=== PATIENT | male | born 1965 | race Caucasian/White ===

== ENCOUNTER → 2016-12-13 | Outpatient (CLI) | payer BC ==
[2016-12-13 19:40] LABS: Basophils # (A) 0.1 k/uL (0-0.2); Basophils % (A) 1 %; CHCM 33.7; Eosinophils # (A) 0.1 k/uL (0-0.7); Eosinophils % (A) 1 %; HCT 46.4 % (39.0-53.0); HGB 15.3 gm/dL (13.0-17.5); Luc # (Auto) 0.13; Luc % (Auto) 2; Lymphocytes % (A) 25 %; MCH 29.4 pg (25.0-35.0); MCV 89.2 fL (80.0-100.0); Mean Platelet Volume 9.7; Monocytes # (A) 0.5 k/uL (0-1.0); Monocytes % (A) 7 %; Neutrophils # (A) 5.2 k/uL (1.3-7.7); Neutrophils % (A) 65 %; RBC 5.21 m/uL (4.30-5.90); RDW 14.9 % (11.5-15.5); WBC (Perox) 7.74
[2016-12-13 20:12] LABS: ALT 48 U/L (21-72); AST 23 U/L (17-59); Alkaline Phosphatase 82 U/L (38-126); Anion Gap 12 mmol/L; Blood Urea Nitrogen 20 mg/dL (9-20); Calcium 9.6 mg/dL (8.4-10.2); Carbon Dioxide 26 mmol/L (22-30); Chloride 104 mmol/L (98-107); Cholesterol 121 mg/dL (<200); Glucose 146 mg/dL (74-99); HDL Cholesterol 36 mg/dL (40-60); Non-African American GFR(MDRD) >60 (>60 ml/min/1.73 sqM); Potassium 3.9 mmol/L (3.5-5.1); Sodium 142 mmol/L (137-145); Total Bilirubin 0.6 mg/dL (0.2-1.3); Total Protein 6.6 g/dL (6.3-8.2)
[2016-12-13 20:57] LABS: Vitamin B12 293 pg/mL (239-931)
[2016-12-13 23:21] LABS: Hemoglobin A1C 7.7 % (4.2-6.1)
== END | disposition home or self-care (01) ==
LOC: MMGSC 10:11
PROVIDERS: ATTEND Family Medicine
DX: E11.9 Type 2 diabetes mellitus without complications (principal); E78.5 Hyperlipidemia, unspecified; R53.83 Other fatigue; I10 Essential (primary) hypertension; Z12.5 Encounter for screening for malignant neoplasm of prostate
CPT/HCPCS: 84439; 80061; 80053; 82607; 83036; 84443; 85025; 82306; 36415; G0103

== ENCOUNTER → 2017-03-24 | Outpatient (CLI) | payer BC ==
[2017-03-24 21:14] LABS: ALT 51 U/L (21-72); AST 25 U/L (17-59); Alkaline Phosphatase 99 U/L (38-126); Anion Gap 11 mmol/L; Blood Urea Nitrogen 18 mg/dL (9-20); Calcium 9.8 mg/dL (8.4-10.2); Carbon Dioxide 25 mmol/L (22-30); Chloride 102 mmol/L (98-107); Creatine Kinase 130 U/L (55-170); Glucose 206 mg/dL (74-99); Non-African American GFR(MDRD) >60 (>60 ml/min/1.73 sqM); Sodium 138 mmol/L (137-145); Total Bilirubin 0.7 mg/dL (0.2-1.3)
[2017-03-24 21:18] LABS: Rheumatoid Factor, Qnt <9 IU/mL (<12)
[2017-03-24 21:29] LABS: Potassium 4.5 mmol/L (3.5-5.1)
[2017-03-25 02:14] LABS: ANA w/Reflex to Titer NEGATIVE (NEGATIVE)
== END | disposition home or self-care (01) ==
LOC: MMGSC 10:30
PROVIDERS: ATTEND Family Medicine
DX: E11.9 Type 2 diabetes mellitus without complications (principal); E55.9 Vitamin D deficiency, unspecified; M25.50 Pain in unspecified joint
CPT/HCPCS: 36415; 80053; 82306; 82550; 83036; 86038; 86431

== ENCOUNTER → 2020-08-12 | Outpatient (CLI) | payer BC ==
[2020-08-14 11:48] LABS: HLA B27 POSITIVE
== END | disposition home or self-care (01) ==
LOC: LABWHC1 12:20
PROVIDERS: ATTEND Family Medicine
DX: M54.12 Radiculopathy, cervical region (principal)
CPT/HCPCS: 36415; 86812

== ENCOUNTER → 2020-09-09 | Outpatient (CLI) | payer BC ==
--- NOTE | 2020-09-10 07:27 | CT ---
EXAMINATION TYPE: CT CervThoracic spine wo con DATE OF EXAM: 09/09/2020 COMPARISON: Outside cervical August 24, 2020 spine x-ray HISTORY: Cervical/thoracic spine pain. Pt c/o pain in RT shoulder radiating into hands. CT DLP: 8.20 mGycm. Automated Exposure Control for Dose Reduction was Utilized. TECHNIQUE: CT scan of the cervical and thoracic spine are obtained without contrast, axial images ar e obtained, sagittal and coronal reformatted images are also reviewed. FINDINGS: There is dextroconvex scoliotic curvature centered in the upper thoracic spine. Alignment i s satisfactory on the sagittal images. The C1-C2 articulation is satisfactory on the coronal images. Vertebral body heights are maintained. Disc space heights are fairly well-preserved. There are large anterior osteophytes in the cervical spine with suspected old fracture at C4-C5 level. There is more mild to moderate anterior and lateral multilevel spurring in the thoracic spine. Dense ossification o f the posterior ligament from C2-C3 disc space level to inferior C4 level effaces the anterior thecal sac measurement 71. There is additional spur disc complex effacing anterior thecal sac at C5-C6 leve l on sagittal and axial image 61. There is large left paracentral spur or spur disc disc complex effa cing the anterior thecal sac at T8-T9 level sagittal image 69 and axial image 163. Thyroid gland shows subcentimeter low dense nodules bilaterally. There is incidental 3 mm calcified s uperior right lower lobe nodule or granuloma axial image 144. Coronary artery calcification in the LA D distribution is present. Cholecystectomy clips. IMPRESSION: Multilevel degenerative changes as detailed above. Prominent spurring and/or bridging ost eophytes in the cervical spine noted.
== END | disposition home or self-care (01) ==
LOC: RADCTMAIN 14:44
PROVIDERS: ATTEND Orthopaedic Surgery
DX: M50.31 Other cervical disc degeneration, high cervical region (principal); M41.84 Other forms of scoliosis, thoracic region; M46.04 Spinal enthesopathy, thoracic region
CPT/HCPCS: 72125; 72128

== ENCOUNTER → 2020-09-11 | Outpatient (CLI) | payer BC ==
--- NOTE | 2020-09-12 03:17 | MR ---
EXAMINATION TYPE: MR sacroiliac joints wo con DATE OF EXAM: 09/11/2020 COMPARISON: None HISTORY: Pain in sacroiliac joints, possible anklyosing spondylitis of multiple sites in spine. Multiplanar multiecho imaging of the sacroiliac joints was performed without contrast. The sacroiliac joint spaces are fairly normal. I see no focal bone destruction. There is no pathologi c fluid collection. The sacrum appears intact. There is no pathologic widening of the sacroiliac join t spaces. There is no increased fluid signal and also no edema in the bone adjacent to the sacroiliac joints on the STIR images. IMPRESSION: MR scan of the sacroiliac joints is within normal limits. No evidence of sacroiliitis.
== END | disposition home or self-care (01) ==
LOC: RADMRIMAIN 16:57
PROVIDERS: ATTEND Internal Medicine Rheumatology
DX: M53.3 Sacrococcygeal disorders, not elsewhere classified (principal)
CPT/HCPCS: 72195

== ENCOUNTER → 2020-10-27 | Outpatient (CLI) | payer BC ==
--- NOTE | 2020-10-27 11:03 | NM ---
EXAMINATION TYPE: NM stress cardiolite complete DATE OF EXAM: 10/27/2020 COMPARISON: NONE HISTORY: Precordial chest pain and abnormal EKG TECHNIQUE: After the intravenous administration of 9.82 mCi Tc 99m Sestamibi - Rest images obtained 45 minutes post injection. The patient exercised using a JOHN protocol and 1 minute prior to peak exercise was injected with 25.2 mCi Tc 99m Sestamibi - Stress images obtained 15 minutes post injecti on. FINDINGS: Targeted heart rate was achieved during performance of the study. Review of stress and rest SPECT tara ges demonstrates no distinct perfusion abnormality. Gated analysis shows normal wall motion with an estimated left ventricular ejection fraction of 57 %. IMPRESSION: No scintigraphic evidence for reversible ischemia
--- NOTE | 2020-10-27 12:20 | P.STRESS ---
- Stress Test Note Stress Test Results/Findings: Exam Performed: NM stress cardiolite complete Exam Date: 10/27/20 Reason for Exam: JACKIE Height: 5 ft 11 in Weight: 103 kg Protocol: STRESS CARDIOLITE Stage: 3 Duration of Exercise: 7:45 Resting Heart Rate: 82 Resting Blood Pressure: 158/95 Maximum Achieved Heart Rate: 148 Maximum Achieved Blood Pressure: 221/76 85% PMHR: 140 100% PMHR: 165 METS: 9.3 Technologist Comment: Stress Test Results/Findings: Patient underwent Cardiolite stress test with a [place] protocol treadmill stress test. Patient exercised into Stage 3 for a total of 7 minutes and 45 seconds reaching a total of 9.3 METS. Patient's maximum heart rate was 148 which represented 90 % age-predicted maximum heart rate. Stress EKG findings: At baseline patient's EKG showed normal sinus rhythm, normal axis, poor R-wave progression, no significant ST or T-wave abnormalities. At peak exercise, EKG showed occasional PVC, nondiagnostic [address] depressions in the inferolateral leads. Conclusions: 1. Borderline EKG response to exercise with nonspecific EKG changes not diagnostic of ischemia. 2. Fair exercise capacity. 3. Nuclear portion to be reported separately.
--- NOTE | 2020-10-29 12:39 | EST ---
Stress Test Results/Findings: Exam Performed: HI stress cardiolite complete Exam Date: 10/27/20 Reason for Exam: JACKIE Height: 5 ft 11 in Weight: 103 kg Protocol: STRESS CARDIOLITE Stage: 3 Duration of Exercise: 7:45 Resting Heart Rate: 82 Resting Blood Pressure: 158/95 Maximum Achieved Heart Rate: 148 Maximum Achieved Blood Pressure: 221/76 85% PMHR: 140 100% PMHR: 165 METS: 9.3 Technologist Comment: Stress Test Results/Findings: Patient underwent Cardiolite stress test with a [place] protocol treadmill stress test. Patient exercised into Stage 3 for a total of 7 minutes and 45 seconds reaching a total of 9.3 METS. Patient's maximum heart rate was 148 which represented 90 % age-predicted maximum heart rate. Stress EKG findings: At baseline patient's EKG showed normal sinus rhythm, normal axis, poor R-wave progression, no significant ST or T-wave abnormalities. At peak exercise, EKG showed occasional PVC, nondiagnostic [address] depressions in the inferolateral leads. Conclusions: 1. Borderline EKG response to exercise with nonspecific EKG changes not diagnostic of ischemia. 2. Fair exercise capacity. 3. Nuclear portion to be reported separately. MTDD
== END | disposition home or self-care (01) ==
LOC: RADNMMAIN 08:15
PROVIDERS: ATTEND Family Medicine
DX: R94.31 Abnormal electrocardiogram [ECG] [EKG] (principal); R07.2 Precordial pain
CPT/HCPCS: 93017; 78452; A9500

== ENCOUNTER → 2020-10-29 | Outpatient (CLI) | payer BC ==
--- NOTE | 2020-10-29 09:55 | FL ---
EXAMINATION TYPE: FL barium swallow DATE OF EXAM: 10/29/2020 CLINICAL HISTORY: Dysphagia TECHNIQUE: A double contrast esophagram is performed utilizing air and barium. A total of 1 minute and 28 seconds of fluoroscopic time was utilized during procedure and 78 images obtained. COMPARISON: None FINDINGS: The esophagus shows normal motility and slight delayed emptying into the stomach. No evide nce of hiatal hernia or stricture noted. There was a small amount of gastroesophageal reflux was seen during real time performance of this study. There is a persistent defect of the cervical esophagus. IMPRESSION: 1. Persistent filling defect of the cervical esophagus is indeterminant on this examination. Upper en doscopy would be helpful for further evaluation. 2. Small amount of gastroesophageal reflux is noted. 3. Slight delayed emptying of contrast into the stomach.
== END | disposition home or self-care (01) ==
LOC: RADUSWWP 09:08
PROVIDERS: ATTEND Otolaryngology
DX: K21.9 Gastro-esophageal reflux disease without esophagitis (principal)
CPT/HCPCS: 74220

== ENCOUNTER → 2020-11-20 | Outpatient (CLI) | payer BC | END | disposition home or self-care (01) | LOC: LABPAT 08:14 | PROVIDERS: ATTEND Orthopaedic Surgery | DX: Z01.812 Encounter for preprocedural laboratory examination (principal); M48.32 Traumatic spondylopathy, cervical region | CPT/HCPCS: 87070 ==

== ENCOUNTER 2020-12-01 05:58 | Observation (INO) | payer BC ==
[2020-11-27 15:13] VITALS: BMI 30.2
--- NOTE | 2020-11-30 10:43 | P.HPOR ---
History of Present Illness H&P Date: 11/13/20 Chief Complaint: Neck pain, Arm tingling Subjective: This 55 year old male presents today for a a follow up for discussion of surgical intervention. 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 He did follow up with Dr. Nguyen regarding this, who agrees that he needs surgery and decompression. The patient has been wearing his cervical collar at night and when driving. He notes some improvement in his neck pain. Patient is not taking any medication for pain. Patient is ambulating independently. He states he saw ENT, who did a swallow eval. I have reviwed these films as well. He does have some filling and clearning difficulty around the C6-7 region which is where this osteophyte is large and protruding. We discussed treatment of this, however at a later time. He is still able to swallow and is doing OK with this. There are no other symptoms related to this at this time. Voice is normal. The patients' past social, medical, family, surgical history, as well as review of systems, have been reviewed. Please refer to the Neurosurgery History and Physical form that has been scanned in to our electronic medical record system. 10/07/20:Subjective: This 55 year old male presents today with his for a a follow up on his cervical pain and CT results and disccusion of surgical intervention. We discussed last visit about his OALL and OPLL and the consequences, sequela and o utomces from this. He states today that he is noting more difficulty with swallowing than in the past and had never really put it together that the large osteophyes on his neck could be causing this. He currently has no pain and is doing better in regards to his neck pain but still has a lot of issues with his hands, his notes that he drops things a lot and that is it hard for him to perform fine motor skills. The patient has been wearing his cervical collar at night and when driving. He notes some improvement in his neck pain. Patient is not taking any medication for pain. Patient is ambulating independently. 01/11/21:This 55 year old male presents with neck pain. Patient denies any specific injury. He states that he has had neck pain for 8 weeks. He reports right arm and shoulder pain that radiates down into his right hand. Patient notes numbness in his right index and middle fingers. Patient states that he has no pain today. Patient currently is not taking any medication for pain. He did take Gabapentin and Ibuprofen for 6 weeks with no relief. he was recently tested for HLA-B27 which was positive and he was sent to rheumatology for evalua tion however he is not followed with yet he has appointment coming up. He was seen by Dr. Deleon who sent him here. He denies any fevers chills shortness of breath or chest pain at this time he states that his arm symptoms have improved Review of Systems 14 points review of systems completed and as stated in HPI, all other systems reviewed are negative. Past Medical History Past Medical History: Diabetes Mellitus, Hyperlipidemia, Hypertension, Osteoarthritis (OA) Additional Past Medical History / Comment(s): peripheral neuropathy, difficulty swallowing when laying flat, thinks is from cervical issue he has History of Any Multi-Drug Resistant Organisms: None Reported Past Surgical History: Cholecystectomy Additional Past Surgical History / Comment(s): dental surg. Past Anesthesia/Blood Transfusion Reactions: Postoperative Nausea & Vomiting (PONV) Smoking Status: Former smoker - Past Family History Mother Family Medical History: Cancer Additional Family Medical History / Comment(s): colon Medications and Allergies Home Medications Medication Instructions Recorded Confirmed Type Liraglutide [Victoza 3-Brandon] 1.8 mg SQ DAILY 11/27/20 11/27/20 History Losartan Potassium [Cozaar] 50 mg PO BID 11/27/20 11/27/20 History Pravastatin Sodium [Pravachol] 40 mg PO HS 11/27/20 11/27/20 History glyBURIDE/METFORMIN HCL 2 tab PO BID 11/27/20 11/27/20 History [Glucovance 5-500 mg] sitaGLIPtin [Januvia] 100 mg PO DAILY 11/27/20 11/27/20 History Allergies Allergy/AdvReac Type Severity Reaction Status Date / Time codeine Allergy Nausea & Verified 11/27/20 15:08 Vomiting MARILYN Inhibitors AdvReac Cough Verified 11/27/20 15:08 adhesive tape AdvReac skin Verified 11/27/20 15:08 blisters amlodipine [From Norvasc] AdvReac lower Verified 11/27/20 15:08 extremity edema atorvastatin [From Lipitor] AdvReac joint pain Verified 11/27/20 15:08 Physical Examination Osteopathic Statement: *. No significant issues noted on an osteopathic structural exam other than those noted in the History and Physical/Consult. PHYSICAL EXAMINATION: General: Awake, alert, appropriate for age, in no acute distress. HEENT: No unusual neck masses around region of lateral neck triangle, thyroid, supraclavicular groove Heart: Regular rate and rhythm, normal S1, S2 and no murmur/gallop. Lungs: Clear to auscultation bilaterally with no use of accessory muscles. Extremities: Skin warm and dry without acute lesions, coloration, temperature, skin intact, no tenderness or erythema Palpation: Please see Pain drawing on Intake sheet for further detail. Midline spinal tenderness: No E6 Paralumbar tenderness: No E6 Parathoracic tenderness: No E6 Buttocks tenderness: No E6 Special findings: none POSTURAL and MUSCULO-SKELETAL EVALUATION: Coronal Balance: Neutral Recumbent testing: Patient is able to lay flat on back Sagittal Balance: Neutral Shoulder Profile: level Pelvic Girdle: level Neck ROM: Unrestricted Lumbar ROM: Unrestricted Shoulder ROM: Symmetric in abduction, ER/IR Hip ROM: Symmetric in abduction, adduction, ER/IR Knee ROM: Symmetric and intact in Flexion / extension Hands: Normal Feet:Normal VASCULAR STATUS : LEFT RIGHT Wrist Pulses intact intact Pedal Pulses (Dors. pedis & post.tibialis) intact intact Color normal normal Edema Absent Absent NEUROLOGIC EXAMINATION: Mental Status: Awake and alert, fully oriented, with normal attention, concentration and memory, and fluent, appropriate speech. Cranial Nerves: I: Olfactory not tested. II: Visual acuity normal, no visual field deficit noted with confrontation. III,IV: Normal pupillary reflexes & intact extraocular movements without nystagmus. V,: Intact symmetrical facial sensation. VII: Intact symmetrical facial motor movement VIII: Hearing intact. IX,X: Intact gag, swallow, & normal voice. XI: Sternocleidomastoid, trapezius function intact. XII: Tongue midline with normal movements. L'hermitte's Sign: Negative / absent Spurling'Sign: Absent bilaterally. Cubital percussion test: Absent bilaterally. Elizabeth-Tinel sign - Carpal region: Absent bilaterally. Straight Leg Raising: Absent bilaterally. Crossed straight leg raise: negative MOTOR EXAM (0-5/5, N/T) STRENGTH RIGHT LEFT Shoulder Abd (not part of the RADHA score) 5 5 Elbow Flexors 5 4+ Elbow Extensor 5 5 Wrist Dorsiflexors 5 4+ Finger Abductor 5 5 Junk Dealer 5 5 Hip Flexor (Not part of RADHA Motor score) 5 5 Knee Flexor 5 5 Knee Extensor 5 5 Ankle dorsiflexor 5 5 Ankle plantarflexion 5 5 Extensor hallucis 5 5 REFLEXES(0-4/2, NT) RIGHT LEFT Upper Extremities 2 2 Lower Extremities 2 2 Pathological Reflexes RIGHT LEFT Tse's Absent Absent Clonus Absent Absent # Indicates mechanical impairment negative Babinskis bilaterally Muscle appearance: Normal Rectal Tone: Deferred Sensory system (0-4, N/T) Test type RU MANISH RL LL Joint-Position 2 2 2 2 Vibration 2 2 2 2 Pain & LT sense 2 2 2 2 Dermatomal Deficit: none none none none Gait and Functional Evaluation: Ambulatory aids: Independent Romberg's test: Intact bilaterally Toe heel walk / heel-toe walk intact while maintaining satisfactory balance? yes Squatting/straightening w/o assistance to a min of 60 degree knee flexion? yes Single leg stance: intact Trendelenburg sign negative bilaterally Hand and finger dexterity intact bilaterally? yes Disdiadochokinesis examination negative bilaterally? yes Results XRAY: of the cervical spine today reveal: occipital cervical and C1 2 joints appear stable to flexion-extension. There is anterior flowing osteophytes of the cervical spine as well as ossification of the posterior longitudinal ligament. Anterior longitudinal ligament ossification von to DISH. There is interruption of this at the level of C4-C5 which appears chronic in nature. The OPLL appears to extend from C2-C3 down through C4-C5. No other fracture or dislocation is noted overall alignment is fairly well maintained disc spaces are spared. XRAY of the lumbar spine today reveal: beginning stages of DISH with L4-L5 anterior osteophytes as well as L1-2 anterior osteophytes overall alignment well maintained mild spondylosis throughout as well as facet arthrosis no fracture or dislocation noted. AP pelvis demonstrates congruent femoral acetabular joints with diffuse heterotopic bone formation as well as subchondral sclerosis osteophytic exuberance over the lateral aspect of the acetabulum as well as on on bone arthritic changes subchondral sclerosis and cyst formation XRAY: of the cervical spine from 08/24/2020 was reviewed today reveal: occipital cervical and C1 2 joints appear stable to flexion-extension. There is anterior flowing osteophytes of the cervical spine as well as ossification of the posterior longitudinal ligament. Anterior longitudinal ligament ossification von to DISH. There is interruption of this at the level of C4-C5 which appears chronic in nature. The OPLL appears to extend from C2-C3 down through C4-C5. No other fracture or dislocation is noted overall alignment is fairly well maintained disc spaces are spared. XRAY of the lumbar spine from 08/24/2020 was reviewed today reveal: beginning stages of DISH with L4-L5 anterior osteophytes as well as L1-2 anterior osteophytes overall alignment well maintained mild spondylosis throughout as well as facet arthrosis no fracture or dislocation noted. AP pelvis demonstrates congruent femoral acetabular joints with diffuse heterotopic bone formation as well as subchondral sclerosis osteophytic exuberance over the lateral aspect of the acetabulum as well as on on bone arthritic changes subchondral sclerosis and cyst formation CT of the cervical and thoracic spine from 09/09/2020 reveal: this does reveal ossification the anterior longitudinal ligament from C2 to C7. The patient does have ossification of the posterior longitudinal ligament as well from C2 to C4 there is beginning stages of OPLL at C4 5 and 56 with ligamental thickening. The patient has critical stenosis at these levels measuring approximately 7 mm. From C3 to C7 T1 the patient has 7-8 mm of space available for the cord which is classified as critical stenosis being less than 10 mm. There is a potential fracture line through the C5-C6 region of the anterior longitudinal ligament ossification which is healing in this area. The patient also states that his neck pain is better. Assessment and Plan Assessment: It was my pleasure to have seen and examined Justyn Carter. I reviewed the patient's clinical syndrome, physical findings, and imaging studies during the appointment today. It is my impression that the patient has a diagnosis of the following. I outlined the natural course history without intervention and various interventional options. 1. diffuse idiopathic spinal hyperostosis 2. cervical OPLL, OALL 3. HLA-B27 positive spondyloarthropathy 4. Right upper extremity weakness, left upper extremity weakness 5. 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 C2-T2 or 3 decompression and fusion due to OPLL and OALL with severe stenosis and continued progressive cervical meylopathy 2. Patient will follow up post procedure Surgical Procedure Risk Review Justyn Carter is a 55 year old male presenting for evaluation of onset of UE weakness, neck pain, difficulty with swallowing, arm pain and weakness, unsteady gait and difficulty with fine motor skills. It was my pleasure to have seen and examined Mr. Carter. In our visit today we have had a chance to go over subjective complaints, physical examination findings and treatments, including the natural course history without intervention and various interventional options. The imaging demonstrates OALL and OPLL with severe stenosis, DISH syndrome, stable C0 and C1-2 joints . 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 I explained to the patient that as his condition progresses it could cause continued syptoms, worsesning weakness, instability and pain, worsening meylopathy . At this time, based on the patients imaging and physical exam, I recommend surgery in the form or a: C2-T2 or 3 decompression and fusion. We discussion fusion vs non fusion and I do beliveve that with his extensive OPLL he would need a wide decompression that would destabilize his spine. We discussed that while he has a fused segment, his cervicothoracic junction is not fully fused and he has a region at C6-7 that anteriorly is not completely fused. We discussed that withou a fusion he runs the risk of fracture, post laminectomy kyphosis and severe cervicothoracic deformity. He discussed this with another surgeon as well. He has done his own research and has requested that we fuse as well as decompress, and I agree with this decision. I discussed the risk and benefits of this procedure at length with Mr. Carter. The patient agreed to consider pursuing the procedure mentioned above. Plan: 1. Cervical 2 to Thoracic 2 or 3 decompression and fusion 2. Follow up with PCP for surgical clearance 3. Review of surgical risks and benefits as well as an educational packet on the proposed surgical procedure. Risks: All surgical procedures come with inherent risks, including those related to positioning, anesthesia, intraoperative findings, and postoperative complications. It is important to understand that surgery does not come with any guarantee of a successful outcome as complications and adverse events are al ways possible. The patient was given a handout in office today discussing the surgical procedure and risks associated with the intervention, both of which were discussed with the patient. These risks include but are not limited to the following: ? Experiencing same, different or even worse symptoms in back, neck, arms, or legs compared to before surgery. ? Requiring further surgery or other forms of treatment presently or at some time in the future at same or other levels of the intended spine surgery. ? On an extreme but fortunately relatively rare basis severe complication such as blindness, stroke, heart attack, temporary and/or permanent nerve injury, paralysis, coma, or may occur, sometimes without known explanation. ? Surgical complications may include but are not limited to risk of infection, fluid accumulation in the surgical dissection site, including a seroma or hematoma, that requires additional surgery, wound drainage, bleeding, new numbness or weakness, vision changes/loss, spinal fluid leakage, non-healing and/or infected incision, headaches, difficulty or inability to swallow, hoarseness, hemopneumothorax, pneumothorax, impotence, retrograde ejaculation, vaginal dryness; injury to nerves, spinal cord, blood vessels, lymphatics or other vital organs (i.e., bowel injury, injury to the great vessels); heterotopic bone formation; complications related to the hardware such as screws, rods, cages including misplaced hardware, device failure, instrumentation at the wrong spine level, hardware fracture/breakage, or hardware loosening; vertebral failure of the spinal column above or below the newly placed hardware; retained surgical instrumentations or devices and the need for further surgery. ? Medical risks of the planned spine surgery include but are not limited to generalized Infections to the whole body or local areas outside of the surgical site (sepsis), heart attack, bleeding, anaphylaxis, meningitis, seizure, epilepsy, hearing loss, burn kaufman, laceration of the head or other areas of the body, bruising, hypersensitivity of the skin, bladder over distension; allergic reaction; shoulder injury related to positioning; fat, blood and air clots to other areas of the body like heart, lungs, brain; failure of internal organs such as lungs, kidneys, liver and excessive bleeding. If blood transfusions are necessary, note that transfusions may cause intolerance reactions such as anaphylaxis or other complex reactions. Despite best efforts, the results of spine surgery might not heal in terms of b one, soft tissues such as skin, fascia, ligaments, and joints. Additionally, in order to achieve best possible results, spine surgery may be carried out beyond the initially planned levels and involve decompression, fusion including insertion of hardware at levels other than the original intended area of surgical interest change some portions of the procedure in order to ensure the best possible outcomes. With spine surgery and spinal fusion, there are different off label uses of instrumentation (devices, implants and hardware) as well as biological substances (bone morphogenic proteins, demineralized bone matrix) as well as using extra bone from allograft sources (i.e. cadaver bone) or autograft (iliac crest bone, ribs, or the spine itself). The patient has been given information about these practices and their inherent risks and benefits. [facility] Physician Assistants are medically trained surgical providers who function in the outpatient, inpatient, and operating room setting under the direct supervision of the attending surgeon.They assist in the operating room with direct supervision of the attending surgeons. The patient has had a chance to review all the listed information, has been given print outs detailing this information, and has had all his/her questions answered to their satisfaction. It was my pleasure to have seen and examined Mr. Carter. In our visit today we have had a chance to go over my understanding of our patient's current condition, the natural course history without intervention and various interventional options. Questions were invited and answered, and the patient wishes to proceed as outlined above. I have seen and examined the patient for 25 minutes and we have spent more than 50% of the time in repeat and detailed counseling about the patient's condition, its natural course history with out and as much as can be predicted with surgery and re-review of various surgical treatment options. In conclusion,Mr. Carter and his spouse/partner requested we proceed with the above suggested surgery and are willing to accept risks and limitations of the suggested surgery as nature of the disease process and our best attempts at treatment for the condition. Thank you again for allowing us to be part of your patient's care. Please don't hesitate to contact me if you have any further questions. Signed and authenticated by: Chaitanya Londono [facility] [address] [address] This message is confidential, intended only for the named recipient(s) and may contain information that is privileged or exempt from disclosure under applicable law. If you are not the intended recipient(s), you are notified that the dissemination, distribution or copying of this information is strictly prohibited. If you received this message in error, please notify the sender then delete this message. Patient verbalizes understanding of the information discussed.
[~2020-12-01 05:58] MED LIST: ACETAMINOPHEN TAB 500 MG TAB PO PRN; DEXAMETHASONE SOD PHOSPHATE 4 MG/ML 1 ML VIAL IV ONE; GABAPENTIN 300 MG CAP PO PRN; ONDANSETRON 4 MG/2 ML VIAL IVP PRN; TRANEXAMIC ACID 1,000 MG in SODIUM CHLORIDE 0.9% 100 ML IVPB PRN
[2020-12-01] MEDS ORDERED: VANCOMYCIN 1,500 MG in SODIUM CHLORIDE 0.9% 250 ML IVPB PRN (06:00)
[2020-12-01] MEDS ORDERED: HYDROmorphone 0.5 MG/0.5 ML SYRINGE IVP PRN ×2 (07:00→13:11)
[2020-12-01] MEDS ORDERED: SCOPOLAMINE 1.5MG/72HR PATCH TRANSDERM ONE (07:05)
[2020-12-01 07:14] LABS: Glucose,Whole Blood 147 mg/dL (75-99)
[2020-12-01] MEDS ORDERED: LACTATED RINGERS 1,000 ML IV ONE ×6 (07:15→13:52)
[2020-12-01] MEDS ORDERED: MIDAZOLAM 2 MG/2 ML VIAL IVP ONE (07:17)
[2020-12-01] MEDS ORDERED: fentaNYL (PF) 50 MCG/ML 2 ML AMP IVP ONE (07:24)
[2020-12-01] MEDS ORDERED: KETAMINE 10 MG/ML 20 ML VIAL ONE (07:45)
[2020-12-01] MEDS ORDERED: TRANEXAMIC ACID 1,000 MG/10 ML VIAL ONE (07:45)
[2020-12-01] MEDS ORDERED: ONDANSETRON 4 MG/2 ML VIAL ONE (07:45)
[2020-12-01] MEDS ORDERED: PHENYLEPHRINE-0.9% NACL SYG 1,000 MCG/10 ML SYRINGE ONE (07:45)
[2020-12-01] MEDS ORDERED: PROPOFOL 10 MG/ML 20 ML VIAL IV ONE (07:45)
[2020-12-01] MEDS ORDERED: INSULIN REGULAR 100 UNIT/ML VIAL (IV) IV ONE (07:45)
[2020-12-01] MEDS ORDERED: ROCURONIUM 10 MG/ML (5 ML VIAL) IV ONE (07:45)
[2020-12-01] MEDS ORDERED: fentaNYL (PF) 50 MCG/ML 2 ML AMP ONE (07:45)
[2020-12-01] MEDS ORDERED: SUCCINYLCHOLINE CHLORIDE 100 MG/5 ML SYR IV ONE (07:45)
[2020-12-01] MEDS ORDERED: ALBUMIN HUMAN 5% (25gm) 500 ML VIAL IVPB ONE (07:45)
[2020-12-01] MEDS ORDERED: SODIUM CHLORIDE 0.9% 100 ML BAG ONE (07:45)
[2020-12-01] MEDS ORDERED: HYDROmorphone (PF) 1 MG/ML ONE (07:45)
[2020-12-01] MEDS ORDERED: NEOSTIGMINE 1 MG/ML 10 ML VIAL ONE (07:45)
[2020-12-01] MEDS ORDERED: MIDAZOLAM 2 MG/2 ML VIAL ONE (07:45)
[2020-12-01] MEDS ORDERED: GLYCOPYRROLATE 0.2 MG/ML 2 ML VIAL ONE (07:45)
[2020-12-01] MEDS ORDERED: GELATIN SPONGE,ABSORB (LARGE) 1 EACH SPONGE TOPICAL ONE (07:46)
[2020-12-01] MEDS ORDERED: THROMBIN (BOVINE) 5,000 UNIT VIAL TOPICAL ONE (07:46)
[2020-12-01] MEDS ORDERED: LIDOCAINE 2%-EPI 1:100,000 20 ML VIAL SQ ONE (07:46)
[2020-12-01] MEDS ORDERED: BUPIVACAINE (PF) 0.5% 30 ML VIAL SQ ONE (07:46)
[2020-12-01] MEDS ORDERED: SODIUM CHLORIDE 0.9% IVPB STA (09:09)
[2020-12-01] MEDS ORDERED: METHYLPREDNISOLONE SOD SUCC IVPB STA (09:09)
[2020-12-01] MEDS ORDERED: TRANEXAMIC ACID 1,000 MG in SODIUM CHLORIDE 0.9% 100 ML IVPB STA (09:09)
[2020-12-01] MEDS ORDERED: ceFAZolin 3,000 MG in SODIUM CHLORIDE 0.9% IRRIGATIO 3,000 ML IRRIGATION ONE (09:32)
[2020-12-01 10:17] LABS: Glucose,Whole Blood 253 mg/dL (75-99)
[2020-12-01] MEDS ORDERED: SODIUM CHLORIDE 0.9% IVPB ONE (10:30)
[2020-12-01] MEDS ORDERED: METHYLPREDNISOLONE SOD SUCC IVPB ONE (10:30)
[2020-12-01 11:36] LABS: Glucose,Whole Blood 258 mg/dL (75-99)
[2020-12-01] MEDS ORDERED: VANCOMYCIN 1,000 MG VIAL MISCELLANE ONE (12:00)
[2020-12-01] MEDS ORDERED: CYCLOBENZAPRINE 5 MG TAB PO PRN (13:11)
[2020-12-01] MEDS ORDERED: SENNOSIDES-DOCUSATE SODIUM 1 EACH TAB PO PRN (13:11)
[2020-12-01] MEDS ORDERED: MAGNESIUM HYDROXIDE 2,400 MG/10 ML CUP PO PRN (13:11)
[2020-12-01 13:21] LABS: Glucose,Whole Blood 253 mg/dL (75-99)
[2020-12-01] MEDS ORDERED: HYDROmorphone 1 MG/ML 1 ML SYRINGE IVP PRN (13:22)
--- NOTE | 2020-12-01 13:25 | XR ---
Fluoroscopy INDICATION: Pain FINDINGS: Fluoroscopy time: Not recorded Images obtained: 19. IMPRESSIONS: 1. Documentation of fluoroscopy.
[2020-12-01] MEDS: LACTATED RINGERS 1,000 ML IV SCH ×2 (16:10→18:54)
[2020-12-01] MEDS: VANCOMYCIN IV PER PHARMACY 1 EACH MISC MISCELLANE SCH (16:10)
[2020-12-01 16:36] LABS: Glucose,Whole Blood 296 mg/dL (75-99)
[2020-12-01] MEDS: GABAPENTIN 300 MG CAP PO SCH ×2 (17:01→21:01)
[2020-12-01] MEDS: ACETAMINOPHEN TAB 500 MG TAB PO SCH ×2 (17:01→22:40)
[2020-12-01] MEDS: ONDANSETRON 4 MG/2 ML VIAL IVP PRN (17:11)
[2020-12-01] MEDS ORDERED: INSULIN ASPART (NovoLOG) 100 UNIT/ML VIAL SQ SCH (17:30)
--- NOTE | 2020-12-01 17:32 | P.PN ---
Progress Note - Text Progress Note Date: 12/01/20 Post Op: Patient seen and examined in his room his is at bedside is doing well he is awake and alert and oriented he states no pain currently he can move all 4 extremities without any issues. He states no numbness or tingling at this time. Denies any fevers chills shortness of breath or chest pain. His vital signs are stable at this time. He is being seen by medicine as well as loss. Patient is on NASCIS III protocol for steroids for neuro protective purposes. He is also on insulin to regulate his blood sugar due to this. He is otherwise doing well. Continue with hard collar at this time pain control pain management may ambulate with assist. Maintain drain record output. We will evaluate him in the morning.
--- NOTE | 2020-12-01 18:01 | P.CONS ---
History of Present Illness - Reason for Consult Consult date: 12/01/20 diabetes Requesting physician: Chaitanya Farah - Chief Complaint neck pain - History of Present Illness Patient is a 55-year-old male for history of idiopathic spinal hyper stenosis and HLA-B27 positive spondyloarthropathy, diabetes mellitus type 2 [id number], hypertension, dyslipidemia who presented for elective cervical to thoracic spine decompression. The patient underwent this without any immediate postoperative complications. He was placed on NASCIS III protocol by ortho spine and has been hyperglycemic post-op. Patient seen and examined at bedside. He states he was nauseated but Zofran helps, he did have a headache but Tylenol helps relieve it. He complains of being tired and nodding off during conversation. His pain is tolerable at this time. He denies chest pain or shortness of breath. Of note patient had a recent impacted tooth requiring antibiotics. He completed a seven-day course prior to surgery as well as undergoing tooth extraction. He reports that typically diabetes was well-controlled and his morning blood sugars run approximately 150. His last A1c was 7.2. He currently takes metformin, Januvia, victoza and glyburide. He has not required insulin in the past. He denies any recent cough, cold, fever, flu. Pertinent positives and negatives as discussed in HPI, a complete review of systems was performed and all other systems are negative. General: Lethargic, mild distress appears at stated age Derm: warm, dry Head: atraumatic, normocephalic, symmetric Eyes: EOMI, no lid lag, anicteric sclera, pupils equal round reactive to light ENT: Nose and ears atraumatic, no thrush, no pharyngeal erythema Neck: No thyromegaly, no cervical lymphadenopathy, trachea midline, supple Mouth: no lip lesion, mucus membranes moist Cardiovascular: S1S2 reg, no murmur, positive posterior tibial pulse bilateral, no edema, capillary refill less than 2 seconds Lungs: clear to ascultation bilateral, no ronchi, no rales, no wheeze, no accessory muscle use Abdominal: soft, nontender to palpation, no guarding, no appreciable organomegaly, normal bowel sounds Ext: no gross muscle atrophy, no contractions, cervical collar in place, moving all 4 extremities independently Neuro: CN II-XI grossly intact, light touch intact all 4 extremities, Psych: Lethargic oriented, appropriate affect Patient is a 55-year-old male status post cervical and thoracic decompression. Postoperative management per spine surgery. Diabetes mellitus type 2 secondary to continuous steroid infusion -Patient already received NovoLog 7 units -Transition sliding scale to every 6 hours, Levemir 10 units tonight -Hemoglobin A1c for 7 -Check repeat hemoglobin A1c -If sugars continue to climb greater than 300 likely will need insulin drip Hypertension -Resume Cozaar -Follow blood pressures Dyslipidemia -Resume statin therapy Obesity with BMI 31.0 -Structured outpatient weight loss HLA-B27 positive spondyloarthropathy -Continue postoperative management. Thank you for allowing us to participate in the care of this pleasant patient. Do not hesitate to contact us with questions. Someone can be reached from the [facility] hospitalist group all hours of the day at [phone] or via [employer]. Past Medical History Past Medical History: Diabetes Mellitus, Hyperlipidemia, Hypertension, Osteoarthritis (OA) Additional Past Medical History / Comment(s): peripheral neuropathy, difficulty swallowing when laying flat, thinks is from cervical issue he has History of Any Multi-Drug Resistant Organisms: None Reported Past Surgical History: Cholecystectomy Additional Past Surgical History / Comment(s): dental surg. Past Anesthesia/Blood Transfusion Reactions: Postoperative Nausea & Vomiting (PONV) Past Psychological History: No Psychological Hx Reported Smoking Status: Former smoker Past Alcohol Use History: None Reported Additional Past Alcohol Use History / Comment(s): quit smoking 10 yrs. ago, smoked for 25 yrs. 1ppd Past Drug Use History: None Reported - Past Family History Mother Family Medical History: Cancer Additional Family Medical History / Comment(s): colon Medications and Allergies Home Medications Medication Instructions Recorded Confirmed Type Liraglutide [Victoza 3-Brandon] 1.8 mg SQ DAILY 11/27/20 12/01/20 History Losartan Potassium [Cozaar] 50 mg PO BID 11/27/20 11/27/20 History Pravastatin Sodium [Pravachol] 40 mg PO HS 11/27/20 12/01/20 History glyBURIDE/METFORMIN HCL 2 tab PO BID 11/27/20 12/01/20 History [Glucovance 5-500 mg] sitaGLIPtin [Januvia] 100 mg PO DAILY 11/27/20 12/01/20 History Allergies Allergy/AdvReac Type Severity Reaction Status Date / Time codeine Allergy Nausea & Verified 12/01/20 06:36 Vomiting MARILYN Inhibitors AdvReac Cough Verified 12/01/20 06:36 adhesive tape AdvReac skin Verified 12/01/20 06:36 blisters amlodipine [From Norvasc] AdvReac lower Verified 12/01/20 06:36 extremity edema atorvastatin [From Lipitor] AdvReac joint pain Verified 12/01/20 06:36 Physical Exam Osteopathic Statement: *. No significant issues noted on an osteopathic structural exam other than those noted in the History and Physical/Consult. Vitals: Vital Signs Temp Pulse Pulse Resp BP BP BP 12/01/20 18:00 98.6 F 91 18 116/74 12/01/20 15:35 93 16 126/69 12/01/20 15:20 94 16 137/74 12/01/20 15:05 99 16 153/85 12/01/20 14:58 102 H 12 128/90 12/01/20 14:50 81 10 L 95/55 12/01/20 14:35 80 10 L 100/55 12/01/20 14:20 84 10 L 96/51 12/01/20 14:05 80 10 L 93/57 86/50 12/01/20 13:50 79 6 L 87/50 89/50 12/01/20 13:35 78 6 L 95/61 12/01/20 13:14 97 F L 78 12 102/67 12/01/20 07:37 84 12/01/20 07:27 12/01/20 06:32 97.1 F L 90 16 180/86 Pulse Ox 12/01/20 18:00 95 12/01/20 15:35 99 12/01/20 15:20 99 12/01/20 15:05 99 12/01/20 14:58 99 12/01/20 14:50 99 12/01/20 14:35 99 12/01/20 14:20 99 12/01/20 14:05 98 12/01/20 13:50 97 12/01/20 13:35 97 12/01/20 13:14 97 12/01/20 07:37 97 12/01/20 07:27 96 12/01/20 06:32 99 Intake and Output 12/01/20 12/01/20 12/01/20 06:59 14:59 22:59 Intake Total 2701 Output Total 590 Balance 2110 Intake: IV 2701 Output: Urine 190 Estimated Blood Loss 400 Other: Weight 100.7 kg 100.7 kg Results Labs: Abnormal Lab Results - Last 24 Hours (Table) 12/01/20 12/01/20 12/01/20 Range/Units 07:12 10:15 11:35 POC Glucose (mg/dL) 147 H 253 H 258 H (75-99) mg/dL 12/01/20 12/01/20 Range/Units 13:19 16:34 POC Glucose (mg/dL) 253 H 296 H (75-99) mg/dL
--- NOTE | 2020-12-01 18:04 | FL ---
Fluoroscopy INDICATION: Pain FINDINGS: Fluoroscopy time: 1 minute 31 seconds. Images obtained: 0. IMPRESSIONS: 1. Documentation of fluoroscopy.
[2020-12-01 19:14] LABS: Glucose,Whole Blood 301 mg/dL (75-99)
[2020-12-01] MEDS: INSULIN DETEMIR (LEVEMIR) 100 UNIT/ML SYR SQ SCH (20:01)
[2020-12-01] MEDS: PRAVASTATIN SODIUM 40 MG TAB PO SCH (20:01)
[2020-12-01] MEDS: LOSARTAN 50 MG TAB PO SCH (20:01)
[2020-12-01] MEDS: INSULIN ASPART (NovoLOG) 100 UNIT/ML VIAL SQ SCH (20:02)
[2020-12-01] MEDS: VANCOMYCIN 1,750 MG in SODIUM CHLORIDE 0.9% 500 ML 500 ML IVPB SCH (21:01)
[2020-12-02 05:39] LABS: African American GFR (CKD) 53 (>60 ml/min/1.73 sqM); Anion Gap 13 mmol/L; Blood Urea Nitrogen 33 mg/dL (9-20); Calcium 8.8 mg/dL (8.4-10.2); Carbon Dioxide 17 mmol/L (22-30); Chloride 106 mmol/L (98-107); Glucose 234 mg/dL (74-99); Non-African American GFR(CKD) 46 (>60 ml/min/1.73 sqM); Potassium 4.2 mmol/L (3.5-5.1); Sodium 136 mmol/L (137-145)
[2020-12-02 05:57] LABS: Glucose,Whole Blood 250 mg/dL (75-99)
[2020-12-02] MEDS: ACETAMINOPHEN TAB 500 MG TAB PO SCH ×4 (06:05→23:03)
[2020-12-02] MEDS: INSULIN ASPART (NovoLOG) 100 UNIT/ML VIAL SQ SCH ×5 (06:05→20:13)
[2020-12-02 06:49] LABS: Glucose,Whole Blood 263 mg/dL (75-99)
[2020-12-02] MEDS: VANCOMYCIN IV PER PHARMACY 1 EACH MISC MISCELLANE SCH (07:09)
--- NOTE | 2020-12-02 08:43 | P.PN ---
Subjective Progress Note Date: 12/02/20 Principal diagnosis: neck pain Patient is a 55-year-old male for history of idiopathic spinal hyper stenosis and HLA-B27 positive spondyloarthropathy, diabetes mellitus type 2 [id number], hypertension, dyslipidemia who presented for elective cervical to thoracic spine decompression. The patient underwent this without any immediate postoperative complications. He was placed on NASCIS III protocol by ortho spine and has been hyperglycemic post-op. He was started on insulin sliding scale every 6 hours and low-dose Levemir. He continued to have blood gilman gars 250 or greater. Patient seen and examined at bedside. He reports he is feeling great today. He denies any chest pain, shortness of breath, nausea, or vomiting. He states he has passed flatus but no bowel movement yet. General: non toxic, no distress, appears at stated age Derm: warm, dry Head: atraumatic, normocephalic, symmetric Eyes: EOMI, no lid lag, anicteric sclera Mouth: no lip lesion, mucus membranes moist, cervical collar in place Cardiovascular: S1S2 reg, no murmur, positive posterior tibial pulse bilateral, Lungs: Decreased bs bilateral, no rhonchi, no rales , no accessory muscle use Abdominal: soft, nontender to palpation, no guarding, no appreciable organomegaly Ext: no gross muscle atrophy, no edema, no contractures Neuro: CN II-XI grossly intact, no focal neuro deficits Psych: Alert, oriented, appropriate affect Diabetes mellitus type 2 secondary to continuous steroid infusion - sliding scale to every 6 hours while on steroid infusion and then transition t o ACHS, Levemir 10 units tonight - Hemoglobin A1c for 7 - Check repeat hemoglobin A1c Hypertension -Cozaar -Follow blood pressures Dyslipidemia -Resume statin therapy Obesity with BMI 31.0 -Structured outpatient weight loss HLA-B27 positive spondyloarthropathy -Continue postoperative management. Thank you for allowing us to participate in the care of this pleasant patient. Do not hesitate to contact us with questions. Someone can be reached from the [facility] hospitalist group all hours of the day at [phone] or via [employer]. Objective - Vital Signs Vital signs: Vital Signs Temp 98.2 F 12/02/20 07:38 Pulse 103 H 12/02/20 07:38 Resp 18 12/02/20 07:38 BP 144/73 12/02/20 07:38 Pulse Ox 95 12/02/20 07:38 Intake & Output 12/01/20 12/02/20 12/02/20 18:59 06:59 18:59 Intake Total 2701 Output Total 790 1805 Balance 1911 -1805 Weight 100.7 kg Intake: IV 2701 Output: Drainage 55 Neck 55 Urine 390 1750 Estimated Blood Loss 400 Other: Voiding Method Indwelling Catheter - Labs CBC & Chem 7: 12/02/20 04:13 Labs: Abnormal Lab Results - Last 24 Hours (Table) 12/01/20 12/01/20 12/01/20 Range/Units 10:15 11:35 13:19 Sodium (137-145) mmol/L Carbon Dioxide (22-30) mmol/L BUN (9-20) mg/dL Creatinine (0.66-1.25) mg/dL Glucose (74-99) mg/dL POC Glucose (mg/dL) 253 H 258 H 253 H (75-99) mg/dL 12/01/20 12/01/20 12/02/20 Range/Units 16:34 19:10 01:08 Sodium (137-145) mmol/L Carbon Dioxide (22-30) mmol/L BUN (9-20) mg/dL Creatinine (0.66-1.25) mg/dL Glucose (74-99) mg/dL POC Glucose (mg/dL) 296 H 301 H 250 H (75-99) mg/dL 12/02/20 12/02/20 Range/Units 04:13 06:47 Sodium 136 L (137-145) mmol/L Carbon Dioxide 17 L (22-30) mmol/L BUN 33 H (9-20) mg/dL Creatinine 1.67 H (0.66-1.25) mg/dL Glucose 234 H (74-99) mg/dL POC Glucose (mg/dL) 263 H (75-99) mg/dL
--- NOTE | 2020-12-02 09:58 | P.OP ---
Date of Procedure: 12/01/20 Preoperative Diagnosis: 1. OPLL with severe stenosis 2. OALL with swallowing difficulty 3. DISH disease 4. 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 B/L UE radiculopathy 6. B/L UE weakness Postoperative Diagnosis: 1. OPLL with severe stenosis 2. OALL with swallowing difficulty 3. DISH disease 4. 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 B/L UE radiculopathy 6. B/L UE weakness Procedure(s) Performed: 1. Posteriolateral instrumented fusion C2-T2 2. Posterior laminecetomy decompression C2-C7 3. Segmental instrumentation C2-T2 4. Use of intraoperative neuromonitoring Implants: [place] posterior cervical rods and screws [employer] DBM Autgraft Allograft Anesthesia: GARRET Surgeon: Chaitanya Farah Case Resolution Specialist #1: Fuentes Garcia (Was present for the entire case and necessary due to the complexity of the case) Estimated Blood Loss (ml): 400 IV fluids (ml): 3,000 Urine output (ml): 200 Pathology: none sent Condition: stable Disposition: PACU Indications for Procedure: This is a pleasant 55-year-old male who presented after a knee injury to his neck with neck pain as well as bilateral upper extremity numbness tingling and pain. He was recovering from this incident but upon evaluation was found to have severe dish disease as well as O a LL and likely OPLL. He was then conservatively treated with a collar at first due to this patient of fracture. Computed tomography scan was done as well as MRI. This did not show necessarily any acute fracture however he did have incomplete fusion of C5-C6 and C6-C7 with likely motion in this area he had severe stenosis with SAC of 7 mm throughout his cervical spine. He continued have upper extremity issues and stated that he was slightly off balance. His neck pain did resolve with the collar and some time however we discussed at length treatment options and likely treatment necessity of decompression and fusion for him due to his stenosis and OPLL. He did not seek second opinion and student financial services counselor after our appointments and returned confident that he would like surgery in the form of a decompression and fusion we discussed all the risks and benefits of this and in the risk reviewed. Operative Findings: Severe stenosis C2 to C7 with ankylosis C2 to C4 hypermobility at C5-C6 C6-C7 Description of Procedure: The patient was seen and examined in the preoperative area. All preoperative protocols were followed. Informed consent was obtained risks and benefits of the procedure were discussed at length. Risks including bleeding infection damage to the surrounding tissue and risk of reoperation were discussed with the patient. Risk of anesthesia up to and including was a discussed with the patient. These are outlined in the risk review. They were willing to accept these risks and all of the risks of surgery. The patient was given a weight- based dose of antibiotics in the form of weight-based dose of vancomycin as well as 2 g of Ancef given preoperatively. This was due to the patient's recent dental infection for which she has been on antibiotics and we postponed surgery 2 weeks to evaluate this he is much better. The patient was seen and evaluated by the anesthesia team who deemed them fit for surgery. The site was marked, the patient was willing to proceed with the procedure. The patient was transferred to the operative suite by the Department of anesthesia. They were then drifted off to sleep by the department anesthesia GETA. The patient tolerated this well. [Woodward catheter was placed by nursing staff, atraumatically]. Once confirmation of lines and ventilation Garcia head clamp was placed. the patient was transferred to a prone Mauro table with Garcia head clamp very carefully. Once in good position and the head was secured the remainder of the patient's was situated.. All bony prominences including wrists, elbows, axilla, chest, hips, and thighs, and feet were padded very well. Special attention was paid to the genitalia and these were padded accordingly. SCDs were placed on bilateral lower extremities and were connected. Arms were well padded and placed tucked at his side thumbs down and well- padded. Once in position, again we confirmed good ventilation capabilities and that lines were running appropriately. The patient's posterior cervical thoracic spine was then exposed. 1010s were placed outlining the incision site. Standard alcohol was used to clean the incision site and allowed to dry. C-arm was used to biomark the patient and confirm level for incision which was marked with a skin marker. Operative briefing was performed with all teams and everyone in agreement to proceed. The patient was then prepped and draped in a normal sterile fashion. Timeout was then performed and all parties were in agreement with the procedure to be performed. Midline skin incision was then made over the previously bowel marked area midline from the inion to T2. Dissection was taken down with electrocautery to the cervical thoracic fascia as well as the nuchal ligament. Midline dissection was taken with the electrocautery down to the spinous process of C2 which was identified. We then identified the T1 and T2 spinous processes. We then connected these midline with electrocautery dissection. Subperiosteal dissection was then taken out over the facet joints of C2 through T2. Once good exposure been obtained we proceeded with screw placement in situ. The left- sided C2 screw was placed first. A high-speed bur was used to create a aeroplane pilot hole followed by a flexible drill. This was done under lateral fluoroscopy. The drill was first at 10 mm and then advanced 2 mm in between feeling with a ball probe. Once we reached a depth of 22 mm we were in the correct position and a 22 mm 35 screw was placed on the left-hand side. We then repeated this process on the right-hand side placing the same screw atraumatically. AP and lateral fluoroscopy confirmed good position. We then under lateral fluoroscopy placed lateral mass screws on the left-hand side followed by the right-hand side from C3 to C6. We then proceeded with the right hand side T1 and T2 screws which were placed under AP fluoroscopy. A high-speed bur was used to make a aeroplane pilot hole followed by a pedicle finder. We then tapped and placed screws in these areas and confirmed good position on AP and lateral fluoroscopy. We then continued with the left-hand side placing T1 and T2 screws in a similar fashion. We then used a template gurdeep template out a dual core gurdeep 4 out of 55. This was then cut and bent to fit. We then placed the gurdeep and the set screws bilaterally reducing the gurdeep down to T1 and T2. Set screws were placed in all these positions and then final tightened into position. Once this was accomplished we turned our attention to decompression of C2 through C7. Rongeur was used to remove spinous processes partially at C2 as well as C7. We then performed trough laminotomy on the left-hand side from C2 undercutting C2 to overcut of C7. This is done on the left-hand side followed by the right-hand side. This allowed for decompressive laminectomy bilaterally. We then carefully removed the ligamentum flavum at each level with a 20 upbiter curet. Once the bone was loose. It was removed. Motors were run afterwards and were stable. Meticulous hemostasis was then performed using FloSeal owen as well as bipolar electrocautery we continued with overcut of C7 to allow for decompression at this level as well as undercut of C2. We were able to maintain spinous process and most of the lamina at C2 and it was simply undercut to allow for decompression in this area. Once this was accomplished we then copiously irrigated the wound with 3 L of antibiotic irrigation followed by 3 L of normal sterile saline. Meticulous hemostasis was again performed Surgicel was placed over the exposed dura. 2 cross-links were placed and final tightened. We then placed bone graft in the posterior lateral gutters after decortication of the facet joints as well as the lamina of T1 and T2. This was impacted into place and Surgicel was placed over it. We then placed a drain deep to the fascia. Vancomycin powder was placed into the deep areas as well. Final images were taken AP and lateral which confirmed good position of hardware. We then proceeded with closure first with a deep muscular layer with #1 Vicryl followed by closure of the cervical thoracic fascia and cervical posterior cervical fascia with #1 Vicryl this was then oversewn with a unidirectional strata fix. 0 Vicryl was placed in the deep subcu followed by 2-0 Vicryl in the subcu tissue. We placed 2-0 nylon in the skin in a horizontal mattress fashion. The drain was then sewn in place and connected and there was good suction. We then cleaned the wound and dressed it sterilely with operative foam dressing. Final motors were run and they were stable. There were no other intraoperative neuro monitoring changes throughout the case. The patient was transferred back to her hospital bed atraumatically. Drain continued to hold suction and were in good position. Patient was then awakened and extubated by the department of anesthesia having tolerated the procedure very well with no complications. She was transferred to the postoperative care unit in stable condition.
--- NOTE | 2020-12-02 09:59 | CT ---
EXAMINATION TYPE: CT cervical spine wo con DATE OF EXAM: 12/02/2020 COMPARISON: 09/09/2020 pre-op study HISTORY: Post OP Cervical fusion. CT DLP: [address] of the cervical spine was performed with bone and soft tissue window settings submitted . Coronal and sagittal reconstruction is obtained. C2-3: Ventral and dorsal spondylosis. No evidence for disc herniation or central stenosis. C3-4: Decompressive laminectomy. Large of ventral and dorsal spurs are redemonstrated. Pedicular scre ws are in place. Alignment is anatomic. No evidence for recurrent or residual disease. C4-5:Decompressive laminectomy. Large of ventral and dorsal spurs are redemonstrated. Pedicular screw s are in place. Alignment is anatomic. No evidence for recurrent or residual disease. C5-6: Moderate degenerative disc space narrowing. Ventral and dorsal spondylosis. Decompressive kilo ectomy with pedicular screws. Alignment is near-anatomic. No evidence for recurrent or residual disea se. C6-7:Moderate degenerative disc space narrowing. Ventral and dorsal spondylosis. Decompressive glen ctomy with pedicular screws. Alignment is near-anatomic. No evidence for recurrent or residual diseas e. C7-T1: Within normal limits. IMPRESSION: Changes of decompressive laminectomy. Normal alignment. No evidence for recurrent or residual disease .
[2020-12-02] MEDS: GABAPENTIN 300 MG CAP PO SCH ×3 (10:15→20:13)
[2020-12-02] MEDS: LOSARTAN 50 MG TAB PO SCH ×2 (10:15→20:13)
[2020-12-02 10:43] LABS: Basophils # (A) 0.02 X 10*3/uL (0.00-0.10); Basophils % (A) 0.1 %; Eosinophils # (A) 0 X 10*3/uL (0.04-0.35); Eosinophils % (A) 0 %; HCT 32.9 % (39.6-50.0); HGB 10.9 g/dL (13.0-17.0); Lymphocytes # (A) 0.68 X 10*3/uL (0.90-5.00); Lymphocytes % (A) 3.7 %; MCH 30.4 pg (27.0-32.0); MCHC 33.1 g/dL (32.0-37.0); MCV 91.9 fL (80.0-97.0); Mean Platelet Volume 11.9 fL (9.5-12.2); Monocytes # (A) 0.41 X 10*3/uL (0.20-1.00); Monocytes % (A) 2.3 %; Neutrophils # (A) 16.94 X 10*3/uL (1.80-7.70); Neutrophils % (A) 93.4 %; Platelet Count 173 X 10*3/uL (140-440); RBC 3.58 X 10*6/uL (4.40-5.60); RDW 13.2 % (11.5-14.5); WBC 18.14 X 10*3/uL (4.50-10.00)
[2020-12-02] MEDS ORDERED: DEXAMETHASONE SOD PHOSPHATE 4 MG/ML 1 ML VIAL IV PRN (11:30)
[2020-12-02 11:33] LABS: Glucose,Whole Blood 367 mg/dL (75-99)
--- NOTE | 2020-12-02 12:29 | P.PN ---
Subjective Progress Note Date: 12/02/20 Principal diagnosis: 1. OPLL with severe stenosis 2. OALL with swallowing difficulty 3. DISH disease 4. 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 B/L UE radiculopathy 6. B/L UE weakness Patient was seen at bedside this morning with in room Patient was sitting semirecumbent in bed eating breakfast. Patient says he is pleasantly surprised with how well his pain is under control this morning. He says he barely has any pain. Patient wearing a hard cervical collar. Patient says he is having difficulty swallowing and needing to take small bites and drink a lot of water during his meal. Patient denies having bowel movement yet, however, patient says he has been passing gas. Patient denies chest pain, fever, chest, nausea, vomiting, loss of bowel/bladder control, saddle anesthesia. Objective - Vital Signs Vital signs: Vital Signs Temp 98.2 F 12/02/20 07:38 Pulse 103 H 12/02/20 07:38 Resp 18 12/02/20 07:38 BP 144/73 12/02/20 07:38 Pulse Ox 95 12/02/20 07:38 Intake & Output 12/01/20 12/02/20 12/02/20 18:59 06:59 18:59 Intake Total 2701 540 Output Total 790 1805 600 Balance 1911 -1804 -60 Weight 100.7 kg Intake: IV 2701 Oral 540 Output: Drainage 55 Neck 55 Urine 390 1750 600 Estimated Blood Loss 400 Other: Voiding Method Indwelling Catheter - Exam Spine: Inspection - incision clean, dry, intact. Sutures in good place. Negative for any fluctuance/purulence. Drain in place with moderate amount of serous fluid. Palpation: Mild tenderness to palpation over cervical thoracic area were incision was made. Sensation: Sensation equal, intact, symmetric throughout bilateral upper and lower extremities. ROM/Motor: Patient is able to elevate bilateral legs off of bed. Patient able to wiggle toes in feet bilaterally. Patient able to elevate arms. Cpo strength increasing since surgery. Neurovascular: Radial pulses dorsalis pedis pulse present, intact, bilaterally. Cap refill under 3 seconds bilateral hands. - Labs CBC & Chem 7: 12/02/20 04:13 12/02/20 04:13 Labs: Abnormal Lab Results - Last 24 Hours (Table) 07/12/01/20 12/01/20 Range/Units 11:35 13:19 16:34 WBC (4.50-10.00) X 10*3/uL RBC (4.40-5.60) X 10*6/uL Hgb (13.0-17.0) g/dL Hct (39.6-50.0) % Immature Gran # (0.00-0.04) X 10*3/uL Neutrophils # (1.80-7.70) X 10*3/uL Lymphocytes # (0.90-5.00) X 10*3/uL Eosinophils # (0.04-0.35) X 10*3/uL Sodium (137-145) mmol/L Carbon Dioxide (22-30) mmol/L BUN (9-20) mg/dL Creatinine (0.66-1.25) mg/dL Glucose (74-99) mg/dL POC Glucose (mg/dL) 258 H 253 H 296 H (75-99) mg/dL 12/01/20 12/02/20 12/02/20 Range/Units 19:10 01:08 04:13 WBC (4.50-10.00) X 10*3/uL RBC (4.40-5.60) X 10*6/uL Hgb (13.0-17.0) g/dL Hct (39.6-50.0) % Immature Gran # (0.00-0.04) X 10*3/uL Neutrophils # (1.80-7.70) X 10*3/uL Lymphocytes # (0.90-5.00) X 10*3/uL Eosinophils # (0.04-0.35) X 10*3/uL Sodium 136 L (137-145) mmol/L Carbon Dioxide 17 L (22-30) mmol/L BUN 33 H (9-20) mg/dL Creatinine 1.67 H (0.66-1.25) mg/dL Glucose 234 H (74-99) mg/dL POC Glucose (mg/dL) 301 H 250 H (75-99) mg/dL 12/02/20 12/02/20 Range/Units 04:13 06:47 WBC 18.14 H (4.50-10.00) X 10*3/uL RBC 3.58 L (4.40-5.60) X 10*6/uL Hgb 10.9 L (13.0-17.0) g/dL Hct 32.9 L (39.6-50.0) % Immature Gran # 0.09 H (0.00-0.04) X 10*3/uL Neutrophils # 16.94 H (1.80-7.70) X 10*3/uL Lymphocytes # 0.68 L (0.90-5.00) X 10*3/uL Eosinophils # 0 L (0.04-0.35) X 10*3/uL Sodium (137-145) mmol/L Carbon Dioxide (22-30) mmol/L BUN (9-20) mg/dL Creatinine (0.66-1.25) mg/dL Glucose (74-99) mg/dL POC Glucose (mg/dL) 263 H (75-99) mg/dL Assessment and Plan Assessment: Postoperative day #1 s/p 1. Posteriolateral instrumented fusion C2-T2 2. Posterior laminecetomy decompression C2-C7 3. Segmental instrumentation C2-T2 4. Use of intraoperative neuromonitoring Plan: 1. 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 Posteriolateral instrumented fusion C2-T2. 2. Posterior laminecetomy decompression C2-C7. 3. Segmental instrumentation C2-T2. 4. Use of intraoperative neuromonitoring - patient stable at bedside this morning wearing cervical collar. CT with and without contrast of spine will be done today to evaluate hardware. We will continue follow patient while in hospital 2. Appreciate medical management 3. Pain management- stable at this time - IV and orals 4. GI prophylaxis - senna 5. PT/OT - weightbearing as tolerated 6. Discharge planning - plan discharge home tomorrow versus Monday. Time with Patient: Less than 30
[2020-12-02] MEDS ORDERED: INSULIN ASPART (NovoLOG) 100 UNIT/ML VIAL SQ ONE ×2 (14:05→17:30)
[2020-12-02] MEDS: VANCOMYCIN 1,750 MG in SODIUM CHLORIDE 0.9% 500 ML 500 ML IVPB SCH (14:06)
[2020-12-02 14:10] LABS: Glucose,Whole Blood 436 mg/dL (75-99)
[2020-12-02] MEDS: LACTATED RINGERS 1,000 ML IV SCH (16:24)
[2020-12-02 16:29] LABS: Glucose,Whole Blood 389 mg/dL (75-99)
[2020-12-02] MEDS: INSULIN DETEMIR (LEVEMIR) 100 UNIT/ML SYR SQ SCH (17:52)
[2020-12-02 20:06] LABS: Glucose,Whole Blood 372 mg/dL (75-99)
[2020-12-02] MEDS: PRAVASTATIN SODIUM 40 MG TAB PO SCH (20:13)
[2020-12-03 02:07] LABS: Glucose,Whole Blood 314 mg/dL (75-99)
[2020-12-03] MEDS ORDERED: VANCOMYCIN TROUGH DUE 1 EACH MISC MISCELLANE ONE (05:00)
[2020-12-03] MEDS: VANCOMYCIN 1,750 MG in SODIUM CHLORIDE 0.9% 500 ML 500 ML IVPB SCH (06:14)
[2020-12-03] MEDS: ACETAMINOPHEN TAB 500 MG TAB PO SCH ×4 (06:14→23:40)
[2020-12-03 06:57] LABS: Glucose,Whole Blood 309 mg/dL (75-99)
[2020-12-03] MEDS: INSULIN ASPART (NovoLOG) 100 UNIT/ML VIAL SQ SCH ×6 (07:43→20:54)
[2020-12-03] MEDS: LOSARTAN 50 MG TAB PO SCH ×2 (08:34→20:54)
[2020-12-03] MEDS: GABAPENTIN 300 MG CAP PO SCH ×3 (08:34→20:54)
[2020-12-03 09:12] LABS: HCT 33.8 % (39.6-50.0); HGB 11.4 g/dL (13.0-17.0); MCH 30.6 pg (27.0-32.0); MCHC 33.7 g/dL (32.0-37.0); MCV 90.9 fL (80.0-97.0); Mean Platelet Volume 12.2 fL (9.5-12.2); Platelet Count 162 X 10*3/uL (140-440); RBC 3.72 X 10*6/uL (4.40-5.60); RDW 13.3 % (11.5-14.5); WBC 19.87 X 10*3/uL (4.50-10.00)
--- NOTE | 2020-12-03 09:33 | P.PN ---
Subjective Progress Note Date: 12/03/20 Principal diagnosis: Status post posterior lateral instrumentation fusion C2-T2, laminectomy decompression C2-C7 Patient was examined today at bedside, Dr. Rod was available to examine the patient. He is resting comfortably eating breakfast. He is having very minimal discomfort in the neck at this time. He is having some discomfort in the region where the head clamp was placed during surgery. He notices significant improvement in the numbness and tingling along with pain in the upper extremities. He hasn't taken very much pain medication at this time. He is eating and drinking with no significant difficulties. I certainly with no difficulties, he is passing gas. There was some moderate drainage noted on his c-collar, the drain exited did fall out. Drain was putting out very minimal output through the night. He currently denies any lightheadedness, chest pain or shortness of breath. Objective - Vital Signs Vital signs: Vital Signs Temp 98.8 F 12/03/20 07:18 Pulse 92 12/03/20 07:18 Resp 18 12/03/20 07:18 BP 171/84 12/03/20 07:18 Pulse Ox 96 12/03/20 07:18 Intake & Output 12/02/20 12/03/20 12/03/20 18:59 06:59 18:59 Intake Total 2160 1080 Output Total 600 Balance 1560 1080 Intake: Oral 2160 1080 Output: Urine 600 Other: Voiding Method Toilet Toilet Urinal Urinal # Voids 3 2 - Exam Gen: AOx3, NAD VSS stable at this time Integument: Incision is clean, dry and intact, postop management was removed. Sutures are all in good position and condition. Palpation: Patient has mild tenderness with palpation midline and paraspinal range of cervical spine ROM: Range of motion intact in all major muscle groups of the bilateral upper and lower extremities Sensory Exam: Senory exam to light touch is intact C5-T1 Senosry exam to light touch is intact L2-S1 Reflexes: 2/4 in all UE and LE Negative Deonte's, Babinski, clonus bilaterally - Labs CBC & Chem 7: 12/03/20 05:26 12/02/20 04:13 Labs: Abnormal Lab Results - Last 24 Hours (Table) 12/02/20 12/02/20 12/02/20 Range/Units 04:13 11:31 14:03 WBC 18.14 H (4.50-10.00) X 10*3/uL RBC 3.58 L (4.40-5.60) X 10*6/uL Hgb 10.9 L (13.0-17.0) g/dL Hct 32.9 L (39.6-50.0) % Immature Gran # 0.09 H (0.00-0.04) X 10*3/uL Neutrophils # 16.94 H (1.80-7.70) X 10*3/uL Lymphocytes # 0.68 L (0.90-5.00) X 10*3/uL Eosinophils # 0 L (0.04-0.35) X 10*3/uL POC Glucose (mg/dL) 367 H 436 H (75-99) mg/dL 12/02/20 12/02/20 12/03/20 Range/Units 16:29 20:04 02:06 WBC (4.50-10.00) X 10*3/uL RBC (4.40-5.60) X 10*6/uL Hgb (13.0-17.0) g/dL Hct (39.6-50.0) % Immature Gran # (0.00-0.04) X 10*3/uL Neutrophils # (1.80-7.70) X 10*3/uL Lymphocytes # (0.90-5.00) X 10*3/uL Eosinophils # (0.04-0.35) X 10*3/uL POC Glucose (mg/dL) 389 H 372 H 314 H (75-99) mg/dL 12/03/20 12/03/20 Range/Units 05:26 06:55 WBC 19.87 H (4.50-10.00) X 10*3/uL RBC 3.72 L (4.40-5.60) X 10*6/uL Hgb 11.4 L (13.0-17.0) g/dL Hct 33.8 L (39.6-50.0) % Immature Gran # (0.00-0.04) X 10*3/uL Neutrophils # (1.80-7.70) X 10*3/uL Lymphocytes # (0.90-5.00) X 10*3/uL Eosinophils # (0.04-0.35) X 10*3/uL POC Glucose (mg/dL) 309 H (75-99) mg/dL Assessment and Plan Assessment: Postop day #2 status post posterior lateral instrumented fusion C2-T2, posterior decompression with laminectomy C2-C7 Plan: Pain control, continue use of gabapentin 300 mg 3 times a day, Flexeril 5 mg as needed along with the oxycodone and Tylenol. We will plan to utilize his medications at discharge Wound care: Dressings were changed today at bedside, the suture was removed that was holding drain in place. There is no active drainage visualized, wound care instructions were discussed with the patient Bracing: Use of the hard c-collar was discussed with patient, must be in place when up and about. Prescription was placed for replacement pads Activity: Use of c-collar when ambulating, utilize walker/cane as needed. Lifting, bending and twisting restrictions were discussed Medical recommendations, discuss with internal medicine doctor today the patient's blood sugars. Blood sugars remained severely elevated to 2E high-dose IV steroids the patient was on. They have been utilizing insulin on the hospital. Patient does not take insulin at home. We will continue to monitor blood sugars during his stay Discharge planning: Hopeful discharge home 12/04/2020 pending his blood sugars and overall clinical presentation Time with Patient: Less than 30
[2020-12-03] MEDS: polyethylene glycoL 3350 17 GM POWD.PACK PO SCH (09:35)
[2020-12-03] MEDS: LINAGLIPTIN 5 MG TABLET PO SCH (09:36)
[2020-12-03 11:36] LABS: Glucose,Whole Blood 322 mg/dL (75-99)
[2020-12-03] MEDS: ONDANSETRON 4 MG/2 ML VIAL IVP PRN (14:01)
[2020-12-03 14:53] LABS: Hemoglobin A1C 7.1 % (4.0-6.0)
[2020-12-03] MEDS: LACTATED RINGERS 1,000 ML IV SCH (15:56)
[2020-12-03 16:43] LABS: Glucose,Whole Blood 274 mg/dL (75-99)
[2020-12-03] MEDS: metFORMIN 500 MG TAB PO SCH (17:02)
--- NOTE | 2020-12-03 17:04 | P.PN ---
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 The patient underwent this without any immediate postoperative complications. He was placed on NASCIS III protocol by ortho spine and has been hyperglycemic post-op. He was started on insulin sliding scale every 6 hours and low-dose Levemir. He continued to have blood gilman gars 250 or greater. Patient seen and examined at bedside. Pain is still relatively well-controlled, reports some headache, so having some blurry vision which is getting better, no nausea or vomiting, still no bowel movement since admission. General: non toxic, no distress, appears at stated age Derm: warm, dry Head: atraumatic, normocephalic, symmetric Eyes: EOMI, no lid lag, anicteric sclera Mouth: no lip lesion, mucus membranes moist Cardiovascular: S1S2 reg, no murmur, positive posterior tibial pulse bilateral, Lungs: Decreased bs bilateral, no rhonchi, no rales , no accessory muscle use Abdominal: soft, nontender to palpation, no guarding, no appreciable organomegaly Ext: no gross muscle atrophy, no edema, no contractures Neuro: CN II-XI grossly intact, no focal neuro deficits Psych: Alert, oriented, appropriate affect Diabetes mellitus type 2 secondary to continuous steroid infusion - Continue with sliding scale insulin, add fixed dose insulin with meals -Start tradjenta and metformin - levemir - Hemoglobin A1c 7.1 Hypertension - likely elevated due to pain and steroid use -Cozaar -Follow blood pressures Dyslipidemia - statin therapy Obesity with BMI 31.0 -Structured outpatient weight loss HLA-B27 positive spondyloarthropathy -Continue postoperative management. Recommendations a maintained in hospital for 1 additional day secondary to blood sugar levels. Discussed with Dr. Lam's and who is in agreement. Continue to monitor patient anticipate home in a.m. Thank you for allowing us to participate in the care of this pleasant patient. Do not hesitate to contact us with questions. Someone can be reached from the [facility] hospitalist group all hours of the day at [phone] or via perfect serve. Objective - Vital Signs Vital signs: Vital Signs Temp 98.5 F 12/03/20 13:21 Pulse 92 12/03/20 13:21 Resp 17 12/03/20 13:21 BP 188/92 12/03/20 13:21 Pulse Ox 96 12/03/20 13:21 Intake & Output 12/02/20 12/03/20 12/03/20 18:59 06:59 18:59 Intake Total 2160 2160 Output Total 600 Balance 1560 2160 Intake: Oral 2160 2160 Output: Urine 600 Other: Voiding Method Toilet Toilet Urinal # Voids 3 2 - Labs CBC & Chem 7: 12/03/20 05:26 12/02/20 04:13 Labs: Abnormal Lab Results - Last 24 Hours (Table) 12/02/20 12/03/20 12/03/20 Range/Units 20:04 02:06 05:26 WBC (4.50-10.00) X 10*3/uL RBC (4.40-5.60) X 10*6/uL Hgb (13.0-17.0) g/dL Hct (39.6-50.0) % POC Glucose (mg/dL) 372 H 314 H (75-99) mg/dL Hemoglobin A1c 7.1 H (4.0-6.0) % 12/03/20 12/03/20 12/03/20 Range/Units 05:26 06:55 11:32 WBC 19.87 H (4.50-10.00) X 10*3/uL RBC 3.72 L (4.40-5.60) X 10*6/uL Hgb 11.4 L (13.0-17.0) g/dL Hct 33.8 L (39.6-50.0) % POC Glucose (mg/dL) 309 H 322 H (75-99) mg/dL Hemoglobin A1c (4.0-6.0) % 12/03/20 Range/Units 16:41 WBC (4.50-10.00) X 10*3/uL RBC (4.40-5.60) X 10*6/uL Hgb (13.0-17.0) g/dL Hct (39.6-50.0) % POC Glucose (mg/dL) 274 H (75-99) mg/dL Hemoglobin A1c (4.0-6.0) %
[2020-12-03] MEDS ORDERED: INSULIN DETEMIR (LEVEMIR) 100 UNIT/ML SYR SQ SCH (18:00)
[2020-12-03 20:04] LABS: African American GFR (CKD) 51.5 (60.0-200.0); Anion Gap 11.4 mmol/L (4.00-12.00); BUN/Creat Ratio 20.59 Ratio (12.00-20.00); Calcium 9.1 mg/dL (8.7-10.3); Carbon Dioxide 21.6 mmol/L (21.6-31.8); Non-African American GFR(CKD) 44.4 (60.0-200.0); Potassium 4.1 mmol/L (3.5-5.5)
[2020-12-03 20:06] LABS: Glucose,Whole Blood 253 mg/dL (75-99)
[2020-12-03] MEDS: PRAVASTATIN SODIUM 40 MG TAB PO SCH (20:54)
[2020-12-04 01:58] LABS: Glucose,Whole Blood 253 mg/dL (75-99)
[2020-12-04 02:43] VITALS: RESP 17
[2020-12-04] MEDS: ACETAMINOPHEN TAB 500 MG TAB PO SCH ×2 (05:20→12:10)
[2020-12-04 05:31] LABS: HCT 36.5 % (39.0-53.0); HGB 12.7 gm/dL (13.0-17.5); MCH 31.4 pg (25.0-35.0); MCHC 34.7 g/dL (31.0-37.0); MCV 90.4 fL (80.0-100.0); Mean Platelet Volume 9.3; Platelet Count 174 k/uL (150-450); RBC 4.04 m/uL (4.30-5.90); RDW 13.2 % (11.5-15.5)
[2020-12-04 06:33] LABS: Glucose,Whole Blood 225 mg/dL (75-99)
[2020-12-04] MEDS: INSULIN ASPART (NovoLOG) 100 UNIT/ML VIAL SQ SCH ×3 (07:23→12:11)
[2020-12-04] MEDS: metFORMIN 500 MG TAB PO SCH (07:23)
[2020-12-04] MEDS: GABAPENTIN 300 MG CAP PO SCH ×2 (08:44→16:56)
[2020-12-04] MEDS: LINAGLIPTIN 5 MG TABLET PO SCH (08:44)
[2020-12-04] MEDS: LOSARTAN 50 MG TAB PO SCH (08:44)
[2020-12-04] MEDS: polyethylene glycoL 3350 17 GM POWD.PACK PO SCH (08:46)
[2020-12-04 11:26] LABS: Glucose,Whole Blood 197 mg/dL (75-99)
--- NOTE | 2020-12-04 11:29 | P.PN ---
Subjective Progress Note Date: 12/04/20 Principal diagnosis: Status post posterior lateral instrumentation fusion C2-T2, laminectomy decompression C2-C7 Patient was examined today at bedside, he is resting comfortably. He states that he does have some generalized tightness in the neck region but no acute pain. There is no issues with the incision at this time. His sugars have improved since overnight. He continues to have no issues with bowel or bladder function at this time. Objective - Vital Signs Vital signs: Vital Signs Temp 98.1 F 12/04/20 06:53 Pulse 71 12/04/20 06:53 Resp 17 12/04/20 06:53 BP 189/92 12/04/20 06:53 Pulse Ox 97 12/04/20 06:53 Intake & Output 12/03/20 12/04/20 12/04/20 18:59 06:59 18:59 Intake Total 2160 Balance 2160 Intake: Oral 2160 Other: Voiding Method Toilet Toilet Toilet # Voids 1 - Exam Gen: AOx3, NAD VSS stable at this time Integument: Incision is clean, dry and intact Sutures are all in good position and condition. Palpation: Patient has mild tenderness with palpation midline and paraspinal range of c ervical spine ROM: Range of motion intact in all major muscle groups of the bilateral upper and low er extremities Sensory Exam: Senory exam to light touch is intact C5-T1 Senosry exam to light touch is intact L2-S1 Reflexes: 2/4 in all UE and LE Negative Deonte's, Babinski, clonus bilaterally - Labs CBC & Chem 7: 12/04/20 04:50 12/03/20 05:26 Labs: Abnormal Lab Results - Last 24 Hours (Table) 12/03/20 12/03/20 12/03/20 Range/Units 05:26 05:26 11:32 WBC (3.8-10.6) k/uL RBC (4.30-5.90) m/uL Hgb (13.0-17.5) gm/dL Hct (39.0-53.0) % BUN 35.0 H (9.0-27.0) mg/dL Creatinine 1.7 H (0.6-1.5) mg/dL Est GFR (CKD-EPI)AfAm 51.5 L (60.0-200.0) Est GFR (CKD-EPI)NonAf 44.4 L (60.0-200.0) BUN/Creatinine Ratio 20.59 H (12.00-20.00) Ratio Glucose 296 H (70-110) mg/dL POC Glucose (mg/dL) 322 H (75-99) mg/dL Hemoglobin A1c 7.1 H (4.0-6.0) % 12/03/20 12/03/20 12/04/20 Range/Units 16:41 20:05 01:53 WBC (3.8-10.6) k/uL RBC (4.30-5.90) m/uL Hgb (13.0-17.5) gm/dL Hct (39.0-53.0) % BUN (9.0-27.0) mg/dL Creatinine (0.6-1.5) mg/dL Est GFR (CKD-EPI)AfAm (60.0-200.0) Est GFR (CKD-EPI)NonAf (60.0-200.0) BUN/Creatinine Ratio (12.00-20.00) Ratio Glucose (70-110) mg/dL POC Glucose (mg/dL) 274 H 253 H 253 H (75-99) mg/dL Hemoglobin A1c (4.0-6.0) % 12/04/20 12/04/20 12/04/20 Range/Units 04:50 06:30 11:24 WBC 19.0 H (3.8-10.6) k/uL RBC 4.04 L (4.30-5.90) m/uL Hgb 12.7 L (13.0-17.5) gm/dL Hct 36.5 L (39.0-53.0) % BUN (9.0-27.0) mg/dL Creatinine (0.6-1.5) mg/dL Est GFR (CKD-EPI)AfAm (60.0-200.0) Est GFR (CKD-EPI)NonAf (60.0-200.0) BUN/Creatinine Ratio (12.00-20.00) Ratio Glucose (70-110) mg/dL POC Glucose (mg/dL) 225 H 197 H (75-99) mg/dL Hemoglobin A1c (4.0-6.0) % Assessment and Plan Assessment: Postop day #3 status post posterior lateral instrumented fusion C2-T2, posterior decompression with laminectomy C2-C7 Plan: Pain control, continue use of gabapentin 300 mg 3 times a day, Flexeril 5 mg as needed along with the oxycodone and Tylenol. We will plan to utilize his medications at discharge Wound care: Wound care is discussed with patient Bracing: Use of the hard c-collar was discussed with patient, must be in place when up and about. Prescription was placed for replacement pads Activity: Use of c-collar when ambulating, utilize walker/cane as needed. Lifting, bending and twisting restrictions were discussed Other medical specialty recommendations Discharge planning: Stable on an orthopedic standpoint for discharge Time with Patient: Less than 30
[2020-12-04 13:54] VITALS: BP 162/84; PULSE 82; TEMP 98.3
[2020-12-04 16:05] LABS: Glucose,Whole Blood 208 mg/dL (75-99)
--- NOTE | 2020-12-04 16:28 | P.PN ---
Subjective Progress Note Date: 12/04/20 Principal diagnosis: neck pain Patient is a 55-year-old male for history of idiopathic spinal hyper stenosis and HLA-B27 positive spondyloarthropathy, diabetes mellitus type 2 [id number], hypertension, dyslipidemia who presented for elective cervical to thoracic spine decompression. The patient underwent this without any immediate postoperative complications. He was placed on NASCIS III protocol by ortho spine and has been hyperglycemic post-op. He was started on insulin sliding scale every 6 hours and low-dose Levemir. He continued to have blood gilman gars 250 or greater. Patient seen and examined at bedside. Pain is still absent, blurry vision is better, no nausea or vomiting, had a bowel movement. General: non toxic, no distress, appears at stated age Derm: warm, dry Head: atraumatic, normocephalic, symmetric Eyes: EOMI, no lid lag, anicteric sclera Mouth: no lip lesion, mucus membranes moist Cardiovascular: S1S2 reg, no murmur, positive posterior tibial pulse bilateral, Lungs: Decreased bs bilateral, no rhonchi, no rales , no accessory muscle use Abdominal: soft, nontender to palpation, no guarding, no appreciable organomegaly Ext: no gross muscle atrophy, no edema, no contractures Neuro: CN II-XI grossly intact, no focal neuro deficits Psych: Alert, oriented, appropriate affect Diabetes mellitus type 2 secondary to continuous steroid infusion - Continue a sliding scale, continue to monitor blood sugars until 4 PM. 4 PM blood sugars were 203. We will give his Levemir 2 hours early now. At home he will resume his oral medications of Januvia, metformin, glyburide, and Victoza. He'll continue to monitor his blood sugar. If his a.m. blood sugars greater than 300 he will call me for further instructions. - Hemoglobin A1c 7.1 Hypertension - likely elevated due to pain and steroid use -Cozaar -Follow blood pressures Dyslipidemia - statin therapy Obesity with BMI 31.0 -Structured outpatient weight loss HLA-B27 positive spondyloarthropathy -Continue postoperative management. She is discussed with Dr. Garcia. Patient will be discharged home in stable condition. Home med rec addressed. Thank you for allowing us to participate in the care of this pleasant patient. Do not hesitate to contact us with questions. Someone can be reached from the [facility] [place] hospitalist group all hours of the day at [phone] or via perfect serve. Objective - Vital Signs Vital signs: Vital Signs Temp 98.3 F 12/04/20 13:22 Pulse 82 12/04/20 13:22 Resp 17 12/04/20 13:22 BP 162/84 12/04/20 13:22 Pulse Ox 98 12/04/20 13:22 Intake & Output 12/03/20 12/04/20 12/04/20 18:59 06:59 18:59 Intake Total 2160 Balance 2160 Intake: Oral 2160 Other: Voiding Method Toilet Toilet Toilet # Voids 1 4 - Labs CBC & Chem 7: 12/04/20 04:50 12/03/20 05:26 Labs: Abnormal Lab Results - Last 24 Hours (Table) 12/03/20 12/03/20 12/03/20 Range/Units 05:26 16:41 20:05 WBC (3.8-10.6) k/uL RBC (4.30-5.90) m/uL Hgb (13.0-17.5) gm/dL Hct (39.0-53.0) % BUN 35.0 H (9.0-27.0) mg/dL Creatinine 1.7 H (0.6-1.5) mg/dL Est GFR (CKD-EPI)AfAm 51.5 L (60.0-200.0) Est GFR (CKD-EPI)NonAf 44.4 L (60.0-200.0) BUN/Creatinine Ratio 20.59 H (12.00-20.00) Ratio Glucose 296 H (70-110) mg/dL POC Glucose (mg/dL) 274 H 253 H (75-99) mg/dL 12/04/20 12/04/20 12/04/20 Range/Units 01:53 04:50 06:30 WBC 19.0 H (3.8-10.6) k/uL RBC 4.04 L (4.30-5.90) m/uL Hgb 12.7 L (13.0-17.5) gm/dL Hct 36.5 L (39.0-53.0) % BUN (9.0-27.0) mg/dL Creatinine (0.6-1.5) mg/dL Est GFR (CKD-EPI)AfAm (60.0-200.0) Est GFR (CKD-EPI)NonAf (60.0-200.0) BUN/Creatinine Ratio (12.00-20.00) Ratio Glucose (70-110) mg/dL POC Glucose (mg/dL) 253 H 225 H (75-99) mg/dL 12/04/20 12/04/20 Range/Units 11:24 16:03 WBC (3.8-10.6) k/uL RBC (4.30-5.90) m/uL Hgb (13.0-17.5) gm/dL Hct (39.0-53.0) % BUN (9.0-27.0) mg/dL Creatinine (0.6-1.5) mg/dL Est GFR (CKD-EPI)AfAm (60.0-200.0) Est GFR (CKD-EPI)NonAf (60.0-200.0) BUN/Creatinine Ratio (12.00-20.00) Ratio Glucose (70-110) mg/dL POC Glucose (mg/dL) 197 H 208 H (75-99) mg/dL
[2020-12-04] MEDS ORDERED: INSULIN DETEMIR (LEVEMIR) 100 UNIT/ML SYR SQ ONE (16:30)
[2020-12-04] MEDS: LACTATED RINGERS 1,000 ML IV SCH (16:41)
[2020-12-04] MEDS: ONDANSETRON 4 MG/2 ML VIAL IVP PRN (16:56)
--- NOTE | 2020-12-04 17:28 | P.DS ---
Providers Date of admission: 12/02/20 16:11 Expected date of discharge: 12/04/20 Attending physician: Chaitanya Farah DO Consults: 12/01/20 16:49 Consult Physician Routine Consulting Provider: Joana Green Consult Reason/Comments: medical management Do you want consulting provider notified?: Yes [facility] care physician[facility] Course: Spine Surgery Discharge Summary Note Admission Date:12/01/20 Discharge Date: 12/05/2019 Providers: Jaleel Farah Principal Diagnosis: OPLL Procedures: C2 to T2 decompression fusion Secondary Diagnoses: Diabetes Discharge Medications: See list Allergies: Reviewed see list Hospital Course: The patient was evaluated preoperatively and found to have 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 They underwent appropriate preoperative care and were willing to undergo the intended procedure. They underwent a successful C2 to T2 decompression and fusion, were recovered appropriately and sent to the floor. While on the floor they worked with physical therapy, occupational therapy and nursing to enhance their recovery experience. Their pain was well controlled through their stay and they were started on appropriate medications, DVT ppx modalities, activity and dietary needs. Daily labs were monitored closely, and transfusions were only used when necessary. Medicine as well as other consulting services have made their input and have helped with our team approach and multidisciplinary care. PT milestones have been met and passed and they have made the recommendation of home with home health care for this patient and treating providers agree with this care path. The patient will be discharged home with appropriate medications, instructions and follow-up information and in stable condition. Patient Condition at Discharge: Stable Plan - Discharge Summary Discharge Rx Participant: Yes New Discharge Prescriptions: New Docusate [Colace] 100 mg PO DAILY #30 capsule Gabapentin 300 mg PO TID #90 cap Acetaminophen Tab [Tylenol Tab] 500 mg PO Q6H PRN #40 tablet PRN Reason: Pain oxyCODONE HCL [Oxaydo] 5 mg PO Q6H PRN #21 tab PRN Reason: Pain Cyclobenzaprine [Flexeril] 5 mg PO BID PRN #30 tablet PRN Reason: Muscle Spasm polyethylene glycoL 3350 [Miralax] 17 gm PO DAILY powd.pack Continue Pravastatin Sodium [Pravachol] 40 mg PO HS Liraglutide [Victoza 3-Brandon] 1.8 mg SQ DAILY sitaGLIPtin [Januvia] 100 mg PO DAILY glyBURIDE/METFORMIN HCL [Glucovance 5-500 mg] 2 tab PO BID Losartan Potassium [Cozaar] 50 mg PO BID Discharge Medication List Liraglutide [Victoza 3-Brandon] 1.8 mg SQ DAILY 11/27/20 [History] Losartan Potassium [Cozaar] 50 mg PO BID 11/27/20 [History] Pravastatin Sodium [Pravachol] 40 mg PO HS 11/27/20 [History] glyBURIDE/METFORMIN HCL [Glucovance 5-500 mg] 2 tab PO BID 11/27/20 [History] sitaGLIPtin [Januvia] 100 mg PO DAILY 11/27/20 [History] Acetaminophen Tab [Tylenol Tab] 500 mg PO Q6H PRN #40 tablet 12/03/20 [Rx] Cyclobenzaprine [Flexeril] 5 mg PO BID PRN #30 tablet 12/03/20 [Rx] Docusate [Colace] 100 mg PO DAILY #30 capsule 12/03/20 [Rx] Gabapentin 300 mg PO TID #90 cap 12/03/20 [Rx] oxyCODONE HCL [Oxaydo] 5 mg PO Q6H PRN #21 tab 12/03/20 [Rx] polyethylene glycoL 3350 [Miralax] 17 gm PO DAILY powd.pack 12/04/20 [Rx] Follow up Appointment(s)/Referral(s): [facility], [NON-STAFF] - ([facility] will contact you to set up your first visit after discharge. ) Chaitanya Farah, [Doctor of Osteopathic Medicine] - 2 Weeks Brittany Davidson [NON-STAFF] - (Please contact Karlos if you have questions regarding your C-Collar pads. ) Patient Instructions/Handouts: Anterior Posterior Spinal Fusion (DC), Anterior Cervical Discectomy (DC), Anterior Cervical Discectomy (GEN) Activity/Diet/Wound Care/Special Instructions: Spine Discharge and Recovery Instructions Medications: See medication list All medication refills should be obtained through your primary care doctor or your clinic spine surgeon. Please discuss prescription refills at your follow up appointment. Do not call the hospital for medication refills. Dressing: Leave your dressing in place for a total of 5 days post operatively. Then you may remove your dressing and leave open to air. Keep the area clean and if not able to keep area clean, then cover with sterile gauze and tape. Showering: You may shower 3 days after your procedure allowing soap and water to run over incision. Do not scrub. Do not soak. Blot dry. Follow up: Please confirm a follow up appointment with your surgeon 3 weeks post operatively. Please make an appointment to follow up with your PCP in 1-2 weeks after surgery for evaluation 3 phase, 3-week plan POST OP WEEKS 1-3 1. Lifting/carrying/pushing/pulling limited to less than 5 pounds. 2. Do not sit for longer than 15 minutes at one time. Get up and walk around. Prolonged sitting is NOT advised. If you lay down, see if you can tolerate laying down on you front (belly side) 3. Walk for periods of 15 minutes = 1 mile but no longer; do it multiple times times each day. 4. Ice your low back after activity. POST OP WEEKS 3-6 1. Lifting limited to less than 20 pounds. 2. Do not sit for longer than 30 minutes at a time. Frequently change positions. Use a sit-to stand workstation or take frequent breaks from sitting if you have returned to work. 3. Walk for 30 minutes each day. If possible, do these three or more times a day POST OP WEEKS 6+ At your 6-week appointment we will give you a physical therapy referral to focus on a core stabilization and strengthening program. You should also work on leg & buttock strengthening, hamstring & quadriceps stretching, and continue a low impact aerobic activity program such as swimming, walking, or riding a stationary bicycle. During the initial 6 weeks after your surgery, you are at the highest risk of re-injuring your spine. You should generally avoid BLTs (bending, lifting and twisting combination motions) and follow the above guidelines to reduce the chance of reinjury. You can anticipate post op appointments in our office at approximately 3 weeks and 6 weeks after your surgery. INCISION CARE: If your incision is not draining you do NOT need to cover it with a dressing. Keep your incision clean, dry and intact. In most cases, we apply skin glue, erma or sutures to the incision at the time of surgery. This will be like a crust or have the appearance of a scab and will fall off in time on its own. The stitches or erma need to be removed at 3 weeks post op appointment. You may begin to shower 3 days after surgery (this allows the glue to sims well). However, please avoid scrubbing the incision site or peeling off any of the skin glue. This will ensure optimal healing of your incision. Also, during this time avoid soaking the incision area in water - this includes swimming pools, hot tubs or baths. No ointments, lotions or oils on the incision until your surgeon allows. Leave erma, sutures or glue in place. Neurological dysfunction that comes on suddenly can also be a sign of a stroke. Below some common symptoms of a stroke are listed: B - balance difficulty such as sudden onset walking or leaning to one side - NEW E - eye problem such as sudden double vision or trouble seeing on one side - NEW F - Facial weakness or numbness on one side - NEW A - Arm or leg weakness or numbness on one side - NEW S - Slurred speech or difficulty with word finding - NEW T - Time is BRAIN! Call 911 as soon as you recognize these symptoms Diet: Consume a regular diet rich in vegetables and lean protein such as chicken or fish. You should consume in a ratio of approximately 20% fats|40% carbohydrates|40%protein. Vegetables, sweet potatoes, brown rice or quinoa are examples of good carbohydrates. Chips, white bread, cookies and sweets/sugar are examples of bad carbohydrates. Limit your bad carbs, go wild with good carbs. "Life's Simple 7" Guidelines as per [place] [employer] [employer] These will help you reclaim your life after surgery and well drill operator helper cable tool in your recovery, keeping in mind your restrictions. (1) Get Active. Physical activity can help people lose weight, control high blood pressure and cholesterol, feel emotionally better, and sleep better. (2) Control Cholesterol. Avoid a diet high in saturated fat, trans fat, & cholesterol. Limit whole milk & cream, ice cream, butter, egg yolks, processed meats (like sausage and hot dogs), and fatty meats. Choose healthy foods that are low in saturated fat, trans fat and cholesterol which include: Fruits and vegetables, fiber rich grain products (like whole grain pasta and brown rice), lean meat such as chicken, fish, nuts, seeds, and legumes. (3) Eat Better. Eat small portions. Shop at the grocery with a list and do not stray from it. Tips for a healthy diet include: Limit sodium intake to less than 1500mg daily, avoid prepackaged, processed, and fast foods, choose a diet rich in fruits, vegetables, and whole grain, high fiber foods, and limit saturated & cholesterol in your diet. (4) Manage Blood Pressure. If you have high blood pressure, you should have a cuff at home so that you can check your blood pressure regularly. Be sure you have a good cuff. An arm one is generally better than a wrist one. Bring the cuff to a doctor's appointment to validate that the measurements that your cuff are taking are accurate. Take your blood pressure twice daily when you are sitting down and relaxing. Record the numbers in a log and bring this log with you to your doctors' appointments. (5) Lose Weight if your BMI is above 25. A healthy BMI is between 19-25. To calculate Your BMI, you may use a Standard BMI Calculator on the NIH BMI website: <www.nhlbi.nih.gov/guidelines/obesity/BMI/bmicalc.htm>. Weigh oneself daily. If you are overweight, set a goal to lose weight. A pound a week loss if needed is a good target. (6) Reduce Blood Sugar. Limit foods and liquids with "added sugars." (Added sugars include sucrose, fructose, glucose, maltose, dextrose, high fructose corn syrup, corn syrup, concentrated fruit juice and honey). (7) Stop Smoking. If you smoke, quitting smoking is one of the best things that you can do for your health. Smoking increases your risk of heart attack, stroke, and peripheral vascular disease, which is a build-up of plaque in your arteries. Please discard all the cigarettes and lighters in your house. Have a plan for what you will do when you have the urge to smoke. Direct and second- hand smoke shortens your life as well as the lives of your family, friends and others around you. For your health and the health of those around you, please consider quitting! Proper Bending Body Mechanics: Maintain a wide stance with one foot slightly in front of the other. Keep your back straight. Bend utilizing the strength in your hips and knees. Do not bend at the waist. Maintain the lifted object at your waist-level close to your body. Avoid lifting weight that causes immediately pain or pain anywhere in the body afterwards. Smoking/Nicotine If there was ever one thing that you could do to increase your overall health, decrease your risk of cardiovascular problems by about 39% the second you make the choice, it is to STOP SMOKING. Your body's most instant gratification is the second you stop smoking. We have all heard the studies, read the articles but it is true, smoking is extremely bad for your overall health, and moreover it is detrimental to your bone health. Nicotine, IN ANY FORM, kills bone cells, prevents your body from healing fractures, and significantly prolongs healing after surgery. In spine surgery specifically, it increases your risk of not healing your bones to create a fusion and increases your risk of having a revision surgery due to this up to 60%. I know it is hard. I know it feels impossible. But there are ways. Take cont rol of your life. We are here to help you through it. And when you are ready, ask us and we can direct you to help if you desire. Use the START Plan to Quit Smoking (please visit the Helpguide.org website listed below for more information): S = Set a quit date. Choose a date within the next 2 weeks, so you have enough time to prepare without losing your motivation to quit. If you mainly smoke at work, quit on the weekend, so you have a few days to adjust to the change. T = Tell family, friends, and co-workers that you plan to quit. Let your friends and family in on your plan to quit smoking and tell them you need their support and encouragement to stop. Look for a quit philipp who wants to stop smoking as well. You can help each other get through the rough times. A = Anticipate and plan for the challenges you'll face while quitting. Most people who begin smoking again do so within the first 3 months. You can help yourself make it through by preparing ahead for common challenges, such as nicotine withdrawal and cigarette cravings. R = Remove cigarettes and other tobacco products from your home, car, and work. Throw away all your cigarettes (no emergency pack!), lighters, ashtrays, and matches. Wash your clothes and freshen up anything that smells like smoke. Shampoo your car, clean your drapes and carpet, and steam your furniture. T = Talk to your doctor about getting help to quit. Your doctor can prescribe medication to help with withdrawal and suggest other alternatives. If you can't see a doctor, you can get many products over the c ounter at your local pharmacy or grocery store, including the nicotine patch, nicotine lozenges, and nicotine gum. Resources for Quitting Smoking: <https://www.[place].gov/documents/[facility]/Quit_ Tobacco_Resources_for_patients_313480_7.pdf> Supplementation: Take recommended dosages of Vitamin D and Calcium to help fortify your bones and help them to heal. See your health maintenance packet for dosages and recommended levels. DVT/VTE prophylaxis: You will be given compression stockings from the hospital. Wear these daily for the first two weeks after surgery. You may take them off at night. You may be prescribed a medication to help thin your blood. Take this as directed. If you are not prescribed this medication, early and frequent ambulation has been shown to be the best prophylaxis to deep vein thrombosis and sequelae related to this event. Special Instructions: check blood sugar in AM if greater than [address] Green for instructions at [phone] Discharge Disposition: HOME WITH HOME HEALTH SERVICES
[2020-12-04] MEDS ORDERED: INSULIN DETEMIR (LEVEMIR) 100 UNIT/ML SYR SQ SCH (18:00)
== END 2020-12-04 17:15 | disposition home health service (06) ==
LOC: OR 05:58 → 4SSUR 15:23 → OR 12-02 16:11 → 4SSUR 12-02 16:11
PROVIDERS: ADMIT Orthopaedic Surgery; ATTEND Orthopaedic Surgery
DX: M48.02 Spinal stenosis, cervical region (principal); M48.04 Spinal stenosis, thoracic region; M47.812 Spondylosis without myelopathy or radiculopathy, cervical region; M54.10 Radiculopathy, site unspecified; M85.80 Other specified disorders of bone density and structure, unspecified site; I10 Essential (primary) hypertension; E78.5 Hyperlipidemia, unspecified; E66.9 Obesity, unspecified; E11.65 Type 2 diabetes mellitus with hyperglycemia; R13.10 Dysphagia, unspecified; M19.90 Unspecified osteoarthritis, unspecified site; Z68.31 Body mass index [BMI] 31.0-31.9, adult; Z79.899 Other long term (current) drug therapy; Z79.4 Long term (current) use of insulin; Z88.5 Allergy status to narcotic agent; Z88.8 Allergy status to other drugs, medicaments and biological substances; Z91.048 Other nonmedicinal substance allergy status; Z98.1 Arthrodesis status; Z87.891 Personal history of nicotine dependence; Z90.49 Acquired absence of other specified parts of digestive tract; Z80.0 Family history of malignant neoplasm of digestive organs
CPT/HCPCS: 97116; 97161; 86900; 86901; 80048 ×2; 85025; 85027 ×2; 80202; 86850; 83036; 72040; 72125; 22600; 22614 ×7; 63045; 63048 ×5; 22843; G0378 ×3; C1713 ×2; C1762 ×2; J2250; J3370 ×3; J2710; J0690 ×3; J2405 ×3; J2930; J3010; J1170; P9045; J2370; J0330; J2704

== ENCOUNTER → 2022-12-30 | Outpatient (CLI) | payer BC ==
[2022-12-30 15:38] LABS: Basophils # (A) 0.08 X 10*3/uL (0.00-0.10); Basophils % (A) 1.1 %; Eosinophils # (A) 0.13 X 10*3/uL (0.04-0.35); Eosinophils % (A) 1.9 %; HCT 47.3 % (39.6-50.0); HGB 15.6 d/dL (13.0-17.0); Lymphocytes # (A) 2.04 X 10*3/uL (0.90-5.00); Lymphocytes % (A) 29.2 %; MCH 28.9 pg (27.0-32.0); MCV 87.6 FL (80.0-97.0); Mean Platelet Volume 11.2 FL (9.5-12.2); Monocytes # (A) 0.73 X 10*3/uL (0.20-1.00); Monocytes % (A) 10.5 %; NRBC Per 100 WBC 0 X 10*3/uL (0.00-0.01); Neutrophils # (A) 3.96 X 10*3/uL (1.80-7.70); Neutrophils % (A) 56.7 %; Platelet Count 215 X 10*3/uL (140-440); RDW 13.6 % (11.5-14.5); WBC 6.98 X 10*3/uL (4.50-10.00)
[2022-12-30 16:11] LABS: ALT 26 U/L (10-49); AST 14 U/L (14-35); Albumin 4.5 d/dL (3.8-4.9); Albumin/Globulin Ratio 2.05 Ratio (1.60-3.17); Alkaline Phosphatase 89 U/L (41-126); BUN/Creat Ratio 14.93 Ratio (12.00-20.00); Blood Urea Nitrogen 20.9 mg/dL (9.0-27.0); Calcium 9.7 mg/dL (8.7-10.3); Carbon Dioxide 25.1 mmol/L (21.6-31.8); Chloride 104 mmol/L (96-109); Chol/HDL Ratio 4.45 Ratio; Globulin 2.2 d/dL (1.6-3.3); Glucose 247 mg/dL (70-110); LDL Cholesterol,Calculated 93.3 mg/dL (0.0-131.0); Potassium 4.8 mmol/L (3.5-5.5); Sodium 140 mmol/L (135-145); Total Bilirubin 0.3 mg/dL (0.3-1.2); Total Protein 6.7 d/dL (6.2-8.2)
== END | disposition home or self-care (01) ==
LOC: LABWHC1 07:33
PROVIDERS: ATTEND Family Medicine
DX: Z00.00 Encounter for general adult medical examination without abnormal findings (principal); Z12.5 Encounter for screening for malignant neoplasm of prostate
CPT/HCPCS: 80061; 80053; 85025; 82043; 82570; 83036; 36415; G0103